=== PATIENT | female | born 1945 | race Caucasian/White ===

== ENCOUNTER 2020-01-06 08:50 | Outpatient (CLI) | payer MEDICARE, SELFPAY ==
--- NOTE | ~2020-01-06 | DEXA_ITS ---
Bone Density Report Name: Obdulia Villasenor Age: 74 Sex: Female Ethnicity: White Date of : 1945 Indication: postmenopausal; height loss; prior fracture; hysterectomy; Referring Provider: Yazmin Plascencia Study: Bone densitometry was performed. Exam Date: January 06, 2020 Accession number: [id number] Bone Density: Region BMD T-score Z-score Classification AP Spine (L1, L2) 1.101 1.1 3.3 Normal Femoral Neck (Left) 0.724 -1.1 0.9 Osteopenia Total Hip (Left) 1.006 0.5 2.2 Normal Total Hip Bilateral Avg 1.015 0.6 2.3 Normal Femoral Neck (Right) 0.717 -1.2 0.8 Osteopenia Total Hip (Right) 1.022 0.7 2.4 Normal World Health Organization criteria for BMD impression classify patients as: Normal (T-score at or above -1.0), Osteopenia (T-score between -1.0 and -2.5), or Osteoporosis (T-score at or below -2.5). 10-year Fracture Risk(1): Major Osteoporotic Fracture 15% Hip Fracture 2.1% Reported Risk Factors: [place] (), Neck BMD=0.717, BMI=31.5, previous fracture (1) FRAX(R) Version 3.08. Fracture probability calculated for an untreated patient. Fracture probability may be lower if the patient has received treatment. Previous Exams: Region Exam Age BMD T-score BMD Change BMD Change Date g/cm2 vs Baseline vs Previous AP Spine(L1, L2) 01/06/2020 74 1.101 1.1 0.034(3.2%)# 0.040(3.8%)# 11/10/2010 65 1.061 0.7 -0.006(-0.6%) -0.038(-3.4%)* 12/25/2007 62 1.098 1.1 0.032(3.0%)* 0.032(3.0%)* 12/25/2004 59 1.067 0.8 Total Hip(Left) 01/06/2020 74 1.006 0.5 -0.092(-8.4%)# -0.028(-2.7%)# 11/10/2010 65 1.034 0.8 -0.064(-5.8%)* -0.048(-4.4%)* 12/25/2007 62 1.082 1.1 -0.016(-1.5%) -0.016(-1.5%) 12/25/2004 59 1.098 1.3 Total Hip(Right) 01/06/2020 74 1.022 0.7 -0.030(-2.9%)# -0.058(-5.4%)# 11/10/2010 65 1.081 1.1 0.028(2.7%)* 0.034(3.2%)* 12/25/2007 62 1.047 0.9 -0.006(-0.6%) -0.006(-0.6%) 12/25/2004 59 1.053 0.9 *Denotes significance at 95% confidence level, LSC for AP Spine = 0.022 g/cm2, LSC for Total Hip = 0.027 g/cm2 Clinical Information Provided by Patient: Has had a low trauma fracture Has used the following medications: Vitamin D, Calcium Has the following medical conditions: Hysterectomy Patient maximum height was 63.5 Menopause Age: 46 No regular weight bearing exercise Drinks caffeinated beverages Onset of menses at age 15 Number of children 2
--- NOTE | ~2020-01-06 | MM_ITS ---
EXAMINATION: MM screening [facility] BI w tess HISTORY: Screening mammogram TECHNIQUE: Craniocaudal and mediolateral oblique 3-D tomosynthesis images were obtained and synthetic 2-D images were generated. CAD analysis was submitted and interpreted. COMPARISON: Serial mammogram examinations dating back to 02/10/2010 03/19/2010 MRI bilateral breast examination BREAST PARENCHYMAL COMPOSITION: There are scattered areas of fibroglandular density. FINDINGS: There are stable bilateral spiculated high density opacities, not significant changed since 02/10/2010. Numerous bilateral benign calcified microhematomas are again noted. There is no evidence of suspicious mass, calcification, or architectural distortion to suggest malignancy in either breas t. There has been no suspicious interval change. IMPRESSION: 1. No mammographic evidence of malignancy. 2. Recommend routine screening mammography in one year. BI-RADS Category 2: Benign finding(s). Reviewed, dictated and finalized at location A.
== END 2020-01-06 08:51 | disposition home or self-care (01) ==
LOC: ANHIMG 08:53
PROVIDERS: PCP Internal Medicine; Visit Provider Nurse Practitioner
DX: Z12.31 Encounter for screening mammogram for malignant neoplasm of breast (principal); Z78.0 Asymptomatic menopausal state; M85.852 Other specified disorders of bone density and structure, left thigh; M85.851 Other specified disorders of bone density and structure, right thigh
CPT/HCPCS: 77063; 77067; 77080

== ENCOUNTER → 2020-07-08 03:27 | Outpatient (CLI) | payer MEDICARE, SELFPAY ==
[2020-07-08 18:26] LABS: SARS-CoV-2 RNA PCR Negative
== END ==
PROVIDERS: PCP Internal Medicine; Visit Provider Internal Medicine Critical Care Medicine
DX: Z20.822 Contact with and (suspected) exposure to COVID-19 (principal)
CPT/HCPCS: C9803; U0003; U0005

== ENCOUNTER 2020-07-10 08:22 | Outpatient (CLI) | payer MEDICARE, SELFPAY ==
--- NOTE | 2020-07-27 09:52 | WPDSLEEPSTUD ---
Sleep Study Ordering Provider: Tino Shabazz DO Interpreting Physician: Philomena Chapa MD Sleep Study Type: Split Polysomnogram Height: 1.6 m Weight: 77.111 kg Body Mass Index: 30.1 Neck Circumference (inches): 15 [place]: 3 Reason for Sleep Study Known obstructive sleep apnea syndrome on CPAP, current CPAP machine is not working Sleep History Obdulia Villasenor is a 75 eayr old female with obstructive sleep apnea on CPAP. Her current device is not working. She constantly snores loudly enough that others complain about it. She never awakens at night with heartburn, belching or coughing. She occasionally awakens from sleep feeling short of breath. She does not have trouble sleep with a cold. She constantly wake up gap stopping for breath at night. She does not have breathing problems at night observed by others. She frequently sweats excessively night. She never notices her heart pounding or beating irregularly night. She rarely falls asleep during the day, never involuntarily never while driving. She never falls asleep during physical effort. She occasionally has loss of muscle tone was strong emotion. She does not have daytime difficulties due to excessive sleepiness. She occasionally feels paralyzed when waking or falling asleep. She rarely has vivid dreamlike scenes upon awakening or falling asleep. She never feels afraid to go to sleep. She does not have nightmares. She does not remember dreams. She constantly has racing thoughts. She never feels sad or depressed. She occasionally has anxiety. She does not have muscular tension or notices parts of her body jerking. She does not kick at night. She denies having crawling and aching feelings in her legs. She does not have any kind of leg pain at night. She occasionally has morning jaw pain. She denies grinding her teeth during sleep. She is not bothered by pain during the day or awakened by pain at night. She does not wake up feeling stiff in the morning with sore achy muscles or pain in the neck and spine. She has fatigue, headaches, insomnia. She never awakens feeling refreshed. Normal bedtime is 12 midnight taking sometimes up to an hour to fall asleep. She typically wakes 2-3 times at night to use the bathroom. She may stay awake 15 minutes. She wakes the morning at 8:00 a.m. She estimates getting 4-1/2 hours of sleep during the night. She does not sleep well. She does not take naps in the afternoon of evening. A short nap is not refreshing. She is sleepy during the day all the time. Habits: She is a former smoker. Caffeine 2-3 cups of coffee a day. No alcohol or recreational drugs. [facility] Past Medical History Medical History Body mass index (BMI) 35 or more Diarrhea, unspecified Fatty liver Gastric mass Hepatitis C virus infection LOS on CPAP Right leg pain Screening for colon cancer Sore throat Stress at home Family History Family History Sibling Hypertension Mother Family history of seizure disorder Family history of diabetes mellitus in first degree relative Father Family history of heart disease in male family member before age 55 Other Cerebrovascular accident Diabetes mellitus Family history of malignant neoplasm Social History Social History Smoking status: Former smoker Smoking end date: 03/20/75 Alcohol intake: current Medications Home Medications Medication Instructions Recorded Confirmed Type calcium carbonate-vitamin D3 600 600 cap PO .twice daily #30 cap 02/07/19 03/30/20 Rx mg calcium-200 unit capsule hepatitis B virus vacc.rec(PF) 10 10 mcg IM ONCE 02/07/19 03/30/20 History mcg/mL intramuscular syringe pen needle, diabetic 32 gauge x #100 each 02/07/19 03/30/20 History 1/ blood-glucose meter #1 each 07/08/19 03/30/20 Rx cholecalciferol (vitamin D3) 125 125 mcg PO D
[2020-07-27 10:16] VITALS: BMI 30.1
== END 2020-07-10 08:23 | disposition home or self-care (01) ==
LOC: ANHCSM 08:28
PROVIDERS: PCP Internal Medicine; Visit Provider Internal Medicine
DX: G47.33 Obstructive sleep apnea (adult) (pediatric) (principal); Z99.89 Dependence on other enabling machines and devices; G25.81 Restless legs syndrome; E66.9 Obesity, unspecified; Z68.30 Body mass index [BMI] 30.0-30.9, adult
CPT/HCPCS: 95811

== ENCOUNTER 2020-10-28 08:33 | Outpatient (CLI) | payer MEDICARE, SELFPAY ==
--- NOTE | ~2020-10-28 | XR_ITS ---
XR knee LT 3V DATE: 10/28/2020 09:05 INDICATION: Anterior left knee pain following a fall TECHNIQUE: [place], AP and lateral views COMPARISON: May 01, 2017 left knee FINDINGS: There is and approximately 1-1.5 x 9 mm linear lucency of the anterior mid patella on sunri se view; consider CT evaluation to exclude subtle patellar fracture. There is some prepatellar soft t issue swelling. Mild suprapatellar knee joint effusion is suggested. Otherwise no fracture or dislocation, periosteal reaction or bone destruction is evident. No radiopaq ue intra-articular loose body or chondrocalcinosis. Joint spaces are relatively preserved. IMPRESSION: Cannot exclude subtle nondisplaced patellar fracture; consider CT left knee evaluation Small suprapatellar knee joint effusion is suggested Reviewed, dictated and finalized at location A. IMPRESSION: Cannot exclude subtle nondisplaced patellar fracture; consider CT l eft knee evaluation Small suprapatellar knee joint effusion is suggested
== END 2020-10-28 08:34 | disposition home or self-care (01) ==
PROVIDERS: PCP Internal Medicine; Visit Provider Internal Medicine
DX: M25.562 Pain in left knee (principal)
CPT/HCPCS: 73562

== ENCOUNTER 2020-10-30 09:01 | Outpatient (CLI) | payer MEDICARE, SELFPAY ==
--- NOTE | ~2020-10-30 | CT_ITS ---
EXAMINATION: CT knee LT wo con DATE: 10/30/2020 09:25 INDICATION: Left knee pain. TECHNIQUE: Computed tomography (CT) of the left knee was performed without intravenous contrast. Auto mated exposure control and iterative reconstruction technique were employed. The dose-length product was 374.02 mGy-cm. COMPARISON: Left knee radiographs 10/28/2020 FINDINGS: Bone alignment is normal. There is a nondisplaced oblique fracture of the patella. There is mild tricompartmental osteoarthritis. There is a small knee joint effusion. IMPRESSION: 1. Nondisplaced oblique fracture of the patella. 2. Mild left knee osteoarthritis. 3. Small left knee joint effusion. Reviewed, dictated and finalized at location A.
== END 2020-10-30 09:02 | disposition home or self-care (01) ==
PROVIDERS: PCP Internal Medicine; Visit Provider Internal Medicine
DX: S82.002A Unspecified fracture of left patella, initial encounter for closed fracture (principal); M17.12 Unilateral primary osteoarthritis, left knee
CPT/HCPCS: 73700

== ENCOUNTER 2021-01-07 09:23 | Outpatient (CLI) | payer MEDICARE, SELFPAY ==
--- NOTE | ~2021-01-07 | MM_ITS ---
EXAMINATION: MM screening [place] BI w tess HISTORY: Screening mammogram TECHNIQUE: Craniocaudal and mediolateral oblique 3-D tomosynthesis images were obtained and synthetic 2-D images were generated. Bilateral rotated lateral CC views. CAD analysis was submitted and interp reted. COMPARISON: Serial mammogram examinations dating back to 10/16/2015 BREAST PARENCHYMAL COMPOSITION: There are scattered areas of fibroglandular density. FINDINGS: Stable high density spiculated opacities are again noted in both breasts, dictated back to 2016, likely benign. Numerous benign calcifications, primarily calcified microhematomas are again not ed. Otherwise there is no evidence of suspicious mass, calcification, or architectural distortion to suggest malignancy in either breast. There has been no suspicious interval change. IMPRESSION: 1. No mammographic evidence of malignancy. 2. Recommend routine screening mammography in one year. BI-RADS Category 2: Benign finding(s). Reviewed, dictated and finalized at location A.
== END 2021-01-07 09:24 | disposition home or self-care (01) ==
LOC: ANHIMG 09:24
PROVIDERS: PCP Internal Medicine; Visit Provider Nurse Practitioner
DX: Z12.31 Encounter for screening mammogram for malignant neoplasm of breast (principal)
CPT/HCPCS: 77063; 77067

== ENCOUNTER 2021-06-23 17:44 | Emergency (ER) | payer MEDICARE, SELFPAY ==
[2021-06-23] VITALS (12 sets, daily range): BP systolic 95–160; BP diastolic 49–76; PULSE 75–89; RESP 11–27; TEMP 36.2; O2SAT 96–100
--- NOTE | ~2021-06-23 | CT_ITS ---
EXAMINATION: CT brain wo con DATE: 06/23/2021 18:18 INDICATION: 2 episodes of aphasia. TECHNIQUE: Computed tomography (CT) of the head was performed without intravenous contrast. The mA wa s adjusted according to patient size. Iterative reconstruction technique was employed. The dose-lengt h product was 605.33 mGy-cm. COMPARISON: None FINDINGS: No acute intracranial hemorrhage or extra-axial fluid collection. No hydrocephalus, mass, or herniation. No acute ischemic infarct. Unremarkable dural venous sinus attenuation. No acute osseous abnormality. The aerated spaces are clear. Bilateral basal camera calcification. Bilateral lens replacement. Intracranial atherosclerotic calcif ications. IMPRESSION: No acute intracranial process. Reviewed, dictated and finalized at location K.
--- NOTE | ~2021-06-23 | XR_ITS ---
EXAMINATION: XR chest 1V portable Exam Date/Time: 06/23/2021 18:00 CDT CLINICAL HISTORY: neurologic s/s Comparison: 07/13/2008. RESULT: Lines, tubes, and devices: None. Lungs and pleura: Senescent changes. Cardiomediastinal silhouette: Stable cardiomediastinal silhouette. Other: No acute osseous or upper abdominal finding. IMPRESSION: No acute cardiopulmonary process. Reviewed, dictated and finalized at location K.
--- NOTE | 2021-06-23 17:55 | ECG_ITS ---
Measurements Intervals [place] Rate: 79 P: 58 [place]: 172 QRS: 30 QRSD: 92 T: 35 QT: 382 QTc: 439 Interpretive Statements SINUS RHYTHM NO PREVIOUS ECG AVAILABLE FOR COMPARISON Electronically Signed On 06-23-2021 21:21:23 CDT by Stephani Kitchen M.D.
[2021-06-23 18:03] LABS: Glucose Point of Care 126 mg/dl (65-105)
[2021-06-23 18:09] LABS: Basophils Percent Auto 0.3 % (0.2-1.2); Eosinophils Percent Auto 0.1 % (0-4.4); Hematocrit 39.2 % (37.0-47.0); Immature Granulocyte Absolute 0.04 K/mm3 (0.00-0.031); Immature Granulocyte Percent A 0.4 % (0-0.5); Lymphocytes Absolute Auto 2.89 K/mm3 (0.9-3.2); Lymphocytes Percent Auto 26.3 % (18.3-44.2); Mean Corpuscular HGB Conc 33.2 g/dl (32-36); Mean Corpuscular Hemoglobin 30.7 pg (26-34); Mean Corpuscular Volume 92.7 fl (80-100); Mean Platelet Volume 11.7 fl (7.4-10.4); Monocytes Absolute Auto 0.8 K/mm3 (0.1-0.6); Monocytes Percent Auto 7.2 % (2.6-8.5); Neutrophils Absolute Auto 7.2 K/mm3 (1.3-6.7); Neutrophils Percent Auto 65.7 % (45.5-73.1); Platelet Count Result 229 k/mm3 (150-375); Red Blood Count 4.23 M/mm3 (4.2-5.4); Red Cell Distribution Width 13.6 % (11.5-14.5)
[2021-06-23 18:19] LABS: INR 0.9; Prothrombin Time 11.8 Seconds (11.1-14.7)
[2021-06-23 18:20] LABS: Alanine Aminotransferase 25 U/L (4-35); Albumin Level 4.4 g/dL (3.5-5.1); Alkaline Phosphatase 88 U/L (38-126); Anion Gap 6 mmol/L (8-16); Aspartate Amino Transferase 36 U/L (14-36); Bilirubin,Total 0.5 mg/dL (0.2-1.3); Blood Urea Nitrogen 18 mg/dL (7-17); Carbon Dioxide 26 mmol/L (22-30); Chloride 101 mmol/L (98-107); Estimated CRCL calculation 51 ml/min; Estimated Glomerular Filt Rate > 60; Glucose 114 mg/dL (65-110); Potassium 3.8 mmol/L (3.4-5.0); Sodium 133 mmol/L (137-145)
[2021-06-23 18:32] LABS: Troponin I < 0.012 ng/mL (0.000-0.034)
--- NOTE | 2021-06-23 19:38 | PC.NURSE ---
PT AMBULATORY WITH STAND BY ASSIST TO USE RESTROOM AT THIS TIME. URINE SAMPLE PROVIDED.
--- NOTE | 2021-06-23 19:40 | ED.NEUROSD ---
HPI - Neuro Symptoms/Deficit General Chief Complaint: Neuro Symptoms/Deficit Stated Complaint: sent by PCP for EDOUARD/visual disturbances x 1 week Time Seen by Provider: 06/23/21 18:09 Source: patient Mode of arrival: ambulatory Limitations: no limitations History of Present Illness HPI Narrative: 76-year-old with a history of hypertension, hyperlipidemia, diabetes here with complaints of blurred vision followed by expressive aphasia and mild headache have been about a week ago and had a similar episode 2 days ago as well. Patient presently denies having headache or blurred vision or speech abnormality. She states that she called her doctor this morning and was advised to go to the ER. Patient states that she takes aspirin every other day. Onset (ago): week(s) (1) History of same: Yes Relieving factors: none Exacerbating factors: none On Anticoagulants: No Associated symptoms: denies other symptoms Related Data Home Medications Medication Instructions Recorded Confirmed pen needle, diabetic 32 gauge x #100 each 02/07/19 04/27/2103/25 cholecalciferol (vitamin D3) 125 125 mcg PO DAILY 09/12/19 04/27/21 mcg (5,000 unit) capsule semaglutide 0.5 mg SUB-Q WEEKLY ml 02/04/20 04/27/21 aspirin 81 mg tablet,delayed 81 mg PO DAILY 09/28/20 04/27/21 release trospium 20 mg tablet 20 mg PO BID 04/27/21 04/27/21 Allergies Allergy/AdvReac Type Severity Reaction Status Date / Time levofloxacin [From Levaquin] Allergy Severe Abdominal Verified 06/23/21 17:46 Pain PATRIZIA Inhibitors Allergy Mild Cough Verified 06/23/21 17:46 Xidqrsh-QAL-NtN Reductase Allergy Mild Cough Verified 06/23/21 17:46 Inhibitor [Ceboidf-Xii-Zvl Reductase Inhibitor] vaccine adjuvant system, Allergy Mild Reddish Verified 06/23/21 17:46 [id number] liposomal Rash on [From Shingrix (PF)] left arm varicella-zoster virus Allergy Mild Reddish Verified 06/23/21 17:46 glycoprotein E, recombinant Rash on [From Shingrix (PF)] left arm Review of Systems Review of Systems: All systems reviewed & are unremarkable except as noted in HPI and below Constitutional: Constitutional: Reports no additional constitutional complaints Eyes: Eyes: Reports no additional eye complaints ENT: Reports system reviewed and no additional complaints, except as documented Cardiovascular: Cardiovascular: Reports no additional cardiovascular complaints Respiratory: Respiratory: Reports no additional respiratory complaints Gastrointestinal: Gastrointestinal: Reports no additional gastrointestinal complaints Musculoskeletal: Musculoskeletal: Reports no additional musculoskeletal complaints Integumentary/Breasts: Skin/Breast: Reports system reviewed and no additional complaints, except as docu Neurologic: Reports as per HPI Psychiatric: Psychiatric: Reports no additional psychiatric complaints PMFSH Past Medical History Medical History Body mass index (BMI) 35 or more Diarrhea, unspecified Fatty liver Gastric mass Hepatitis C virus infection LOS on CPAP Right leg pain Screening for colon cancer Sore throat Stress at home Family History Family History Sibling Hypertension Mother Family history of seizure disorder Family history of diabetes mellitus in first degree relative Father Family history of heart disease in male family member before age 55 Other Cerebrovascular accident Diabetes mellitus Family history of malignant neoplasm Social History Social History Smoking status: Former smoker Smoking end date: 03/20/75 Alcohol intake: current Alcohol use details: rarely Substance use: never Substance use type: does not use Exam Narrative: GENERAL: Well-appearing, well-nourished, and in no acute distress. HEAD: Normocephalic, atraumatic. EYES: PERRLA and EOMI. ENT: Nares clear, no rhinorrhea or epistaxis. M
[2021-06-23] MEDS: ASPIRIN 325 MG TABLET PO (19:51)
[2021-06-23 20:14] LABS: Add Urine Microscopic? YES; Appearance Urine Clear (Clear); Bilirubin Urine Negative (Negative); Blood Urine Negative (Negative); Color Urine Yellow (Yellow); Glucose Urine UA Negative (Negative); Ketones Urine Negative (Negative); Leukocyte Esterase Ur Trace LEU/UL (Negative); Nitrate Urine Negative (Negative); Protein Urine Negative (Negative); RBC Urine 0-2 /hpf (0-2); Specific Grav Ur 1.014 (1.001-1.035); Squamous Epithelial Cell Urine Rare /hpf (Few); Urobilinogen Urine Negative mg/dL (<2.0); WBC Urine 0-3 /hpf
== END 2021-06-23 20:52 | disposition home or self-care (01) ==
PROVIDERS: Emergency Medicine; Emergency Provider Family Medicine; PCP Internal Medicine
DX: G45.9 Transient cerebral ischemic attack, unspecified (principal); G47.30 Sleep apnea, unspecified; I10 Essential (primary) hypertension; E78.5 Hyperlipidemia, unspecified; E11.9 Type 2 diabetes mellitus without complications; Z79.82 Long term (current) use of aspirin
CPT/HCPCS: 36415; 70450; 71045; 80053; 81001; 82948; 84484; 85025; 85610; 85730; 93005; 99284; A9270

== ENCOUNTER 2021-06-25 09:30 | Outpatient (CLI) | payer MEDICARE, SELFPAY ==
--- NOTE | 2021-06-25 09:45 | ECHO_ITS ---
Patient Info Name: Obdulia Villasenor Age: 76 years : 1945 Gender: Female Ht: 63 in Wt: 165 lbs BSA: 1.85 m2 HR: 80 bpm BP: 144 / 75 mmHg Technical Quality: Good Exam Date: 06/25/2021 10:10 AM Exam Location: [facility] Patient Status: Outpatient Admit Date: 06/25/2021 Staff Ordering Physician: Tino Shabazz DO Tire Builder: Radha Allen RDCS Attending Provider: Tino Shabazz DO Referring Physician: Harika DRAPER; Exam Type: CA echo doppler color flow Study Info Indications G45.9 - Transient cerebral ischemic attack, unspecified Complete two-dimensional, color flow and Doppler transthoracic echocardiogram is performed. Summary 1. Complete two-dimensional, color flow and Doppler transthoracic echocardiogram is performed. 2. Left ventricular chamber dimension is normal. 3. Left ventricular systolic function is normal, estimated at 60-65%. 4. The left ventricular diastolic function is grade I diastolic dysfunction. 5. E/e' 10 is mildly elevated. 6. Left atrial chamber dimension is moderately enlarged. 7. Right atrial chamber dimension is mildly enlarged. 8. There is mild aortic valve sclerosis. 9. There is mild to moderate aortic valve regurgitation. 10. There is mild mitral valve regurgitation. 11. There is trace tricuspid valve regurgitation. 12. No pulmonary hypertension, estimated pulmonary arterial systolic pressure is 25 mmHg. Left Ventricle E/e' 10 is mildly elevated. Left ventricular chamber dimension is normal. Left ventricular systolic function is normal, estimated at 60-65%. The left ventricular diastolic function is grade I diastolic dysfunction. Right Ventricle Right ventricular chamber dimension is normal. Right ventricular systolic function is normal. Left Atria Left atrial chamber dimension is moderately enlarged. Right Atria Right atrial chamber dimension is mildly enlarged. Aortic Valve The aortic valve is trileaflet. There is mild aortic valve sclerosis. There is no aortic valve stenosis. There is mild to moderate aortic valve regurgitation. Pulmonic Valve There is no pulmonic regurgitation. Mitral Valve There is no mitral valve stenosis. There is mild mitral valve regurgitation. Tricuspid Valve There is trace tricuspid valve regurgitation. No pulmonary hypertension, estimated pulmonary arterial systolic pressure is 25 mmHg. Pericardium/Pleural There is no pericardial effusion. Inferior Vena Cava Normal inferior vena cava with >50% collapse upon inspiration consistent with normal right atrial pressure, 5 mmHg. Aorta The aortic root size at the sinus of Valsalva is normal. Left Ventricular Outflow Tract Name Value Normal LVOT 2D LVOT Diameter 2.0 cm LVOT Doppler LVOT Peak Gradient 4 mmHg LVOT Mean Gradient 3 mmHg LVOT VTI 25 cm LVOT VTI/AV VTI Ratio 0.9 LVOT Stroke Volume 77 ml LVOT CO 14.2 l/min LVOT CI 7.7 l
== END 2021-06-25 09:31 | disposition home or self-care (01) ==
LOC: ANHCARD 09:32
PROVIDERS: PCP Internal Medicine; Visit Provider Internal Medicine
DX: G45.9 Transient cerebral ischemic attack, unspecified (principal); I35.1 Nonrheumatic aortic (valve) insufficiency; I34.0 Nonrheumatic mitral (valve) insufficiency
CPT/HCPCS: 93306

== ENCOUNTER 2021-06-29 13:31 | Outpatient (CLI) | payer MEDICARE, SELFPAY ==
--- NOTE | ~2021-06-29 | US_ITS ---
EXAMINATION: US carotid duplex BI DATE: 06/29/2021 14:06 INDICATION: Aphasia. Transient ischemic attack. TECHNIQUE: Grayscale, color Doppler, and pulsed Doppler images of the cervical carotid arteries were obtained. The degree of vessel stenosis is placed in one of the following categories: normal, <50%, 5 0-69%, >=70% but less than near-occlusion, near-occlusion, or total occlusion. Note that percent sten osis relative to normal distal artery lumen diameter is indirectly measured from velocity measurement s as described by Rowdy, et al. Radiology 2003; 229:340-346. COMPARISON: None. FINDINGS: RIGHT: The right common carotid artery (CCA) peak systolic velocity (PSV) is 91 cm/s. The right internal car otid artery (ICA) PSV is 109 cm/s. The right ICA end-diastolic velocity (EDV) is 24 cm/s. The right I CA/CCA PSV ratio is 1.2. Grayscale and color Doppler images yield an estimate of <50% diameter reduct ion from plaque in the ICA. There is antegrade flow in the right vertebral artery. LEFT: The left CCA PSV is 96 cm/s. The left ICA PSV is 91 cm/s. The left ICA EDV is 14 cm/s. The left ICA/C CA PSV ratio is 0.9. Grayscale and color Doppler images yield an estimate of <50% diameter reduction from plaque in the ICA. There is antegrade flow in the left vertebral artery. IMPRESSION: 1. <50% stenosis in the right internal carotid artery. 2. <50% stenosis in the left internal carotid artery. Reviewed, dictated and finalized at location A.
== END 2021-06-29 13:32 | disposition home or self-care (01) ==
LOC: ANHIMG 13:36
PROVIDERS: Visit Provider Internal Medicine
DX: I65.23 Occlusion and stenosis of bilateral carotid arteries (principal)
CPT/HCPCS: 93880

== ENCOUNTER 2021-06-30 12:33 | Outpatient (CLI) | payer MEDICARE, SELFPAY ==
--- NOTE | ~2021-06-30 | MR_ITS ---
EXAMINATION: MR brain/brain stem wo/w con DATE: 06/30/2021 13:44 INDICATION: Transient cerebral ischemic attack, unspecified. Speech deficit. TECHNIQUE: Magnetic resonance imaging (MRI) of the brain and brainstem was performed without and with 15 mL MultiHance intravenous contrast. Sequences included sagittal and axial T1-weighted FSE, axial diffusion-weighted FS EPI, axial T2*-weighted GRE, axial T2-weighted FLAIR Propeller, and axial T2-we ighted Propeller. Postcontrast sequences included axial and coronal T1-weighted FSE. Apparent diffusi on coefficient (ADC) maps were created. COMPARISON: Head CT 06/23/2021 FINDINGS: There are scattered areas of nonspecific increased T2-weighted signal intensity in the cere bral white matter, which is within normal limits for the patient's age. 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 There is no intracranial hemorrhage, acute infarction, or abnormal intracranial mass lesion. The ventricles are normal in size. There are likely changes of ocular lens replacement surgeries. There is a trace right mastoid effusion. There is mild mucosal thickening in left maxillary sinus. IMPRESSION: 1. Normal brain. Reviewed, dictated and finalized at location A. IMPRESSION: 1. Normal brain.
[2021-06-30 13:14] LABS: Estimated Glomerular Filt Rate > 60
== END 2021-06-30 12:34 | disposition home or self-care (01) ==
PROVIDERS: PCP Internal Medicine; Visit Provider Internal Medicine
DX: G45.9 Transient cerebral ischemic attack, unspecified (principal)
CPT/HCPCS: 70553; A9577

== ENCOUNTER 2021-10-08 08:20 | Outpatient (CLI) | payer MEDICARE, SELFPAY ==
--- NOTE | 2021-10-10 11:06 | P.NEURO_ITS ---
Neurology EEG Report General Information Date of Study: 10/08/21 TEST EEG DIAGNOSIS dysphagia CONDITION OF RECORDING awake drowsy and sleep EEG NUMBER [id number] CLINICAL HISTORY patient reports she has had 2 TIAs couple of months ago that had affected her speech EEG DESCRIPTION basic resting occipital frequency consists of low to medium voltage well- organized 8 to 10 hertz per 2nd alpha admixed with low-voltage 15 to 18 hertz per 2nd beta. Low-voltage beta activity seen diffusely admixed with waxing posterior alpha rhythm During drowsiness. Bilateral symmetrical sleep activity seen during sleep. Photic stimulation produced normal drive. Hyperventilation not done. Non paroxysmal. Nonfocal. Nonlateralizing. IMPRESSION Normal record
== END 2021-10-08 08:21 | disposition home or self-care (01) ==
LOC: ANHNEURO 08:23
PROVIDERS: PCP Internal Medicine; Visit Provider Psychiatry & Neurology Neurology
DX: R51.9 Headache, unspecified (principal); R13.10 Dysphagia, unspecified
CPT/HCPCS: 95816

== ENCOUNTER 2021-10-18 00:23 | Day surgery (SDC) | payer MEDICARE, SELFPAY ==
[2021-10-06 12:52] VITALS: BMI 29.2
--- NOTE | 2021-10-15 12:06 | SUR.PREOP ---
patient is taking Sutab for her colon prep.
[2021-10-18 08:30] LABS: Glucose Point of Care 98 mg/dl (65-105)
[2021-10-18 08:31] VITALS: BP 107/88; PULSE 75; RESP 16; TEMP 36.5; O2SAT 98
[2021-10-18] MEDS: LACTATED RINGERS 1,000 ML 150 ML IV CONT (08:37)
--- NOTE | 2021-10-18 09:11 | PM.IMHP ---
H&P: HPI History of Present Illness Date/Time: 10/18/21 09:11 Chief Complaint: Dysphagia and history of colon polyps. Narrative: This is a 76-year-old white female patient referred by primary care service because of difficulty swallowing and a history of colon polyps. Patient has a history of EGD by Dr Zachary Hood in 2017 that revealed a submucosal lesion within the stomach. Because of complaints of dysphagia patient was dilated empirically. No esophageal lesions were identified. Patient reports that she did swallow better for several years until recently food seems to catch her passed slowly through the esophagus. 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 Additionally patient has a distant history of tubular adenomatous colon polyp removed in 2007. Patient presents today for follow-up endoscopy. Review of Systems Review of Systems: Review of systems noncontributory. [facility] Past Medical History Medical History Body mass index (BMI) 35 or more Diarrhea, unspecified Fatty liver Gastric mass Hepatitis C virus infection LOS on CPAP Right leg pain Screening for colon cancer Sore throat Stress at home Family History Family History Sibling Hypertension Mother Family history of seizure disorder Family history of diabetes mellitus in first degree relative Father Family history of heart disease in male family member before age 55 Other Cerebrovascular accident Diabetes mellitus Family history of malignant neoplasm Social History Social History Smoking status: Former smoker (quit 40 years ago) Tobacco type: cigarettes Smoking end date: 03/20/75 Alcohol intake: current Alcohol use details: rarely Substance use: never Substance use type: does not use Living arrangements: with family Spiritual care concerns: No Meds Home Medications and Allergies Home Medications Medication Instructions Recorded Confirmed Type calcium carbonate 600 mg-vitamin 600 cap PO .twice daily #30 caps 02/07/19 10/18/21 Rx D3 5 mcg (200 unit) capsule (Calcium 600 + D(3)) pen needle, diabetic 32 gauge x #100 ea 02/07/19 08/10/21 History 1/6 (NovoFine Plus) blood-glucose meter #1 ea 07/08/19 08/10/21 Rx cholecalciferol (vitamin D3) 125 125 mcg PO DAILY 09/12/19 10/18/21 History mcg (5,000 unit) capsule semaglutide 0.25 mg or 0.5 mg (2 0.5 mg subcut WEEKLY 02/04/20 10/18/21 History mg/1.5 mL) subcutaneous pen injector (Nelbee) metformin 500 mg tablet 500 mg PO DAILY #180 tabs 06/16/20 10/18/21 Rx atorvastatin 40 mg tablet 40 mg PO DAILY #90 tabs 11/18/20 10/18/21 Rx trospium 20 mg tablet 60 mg PO DAILY 04/27/21 10/18/21 History losartan 100 1 tablet PO DAILY #90 tabs 05/14/21 10/18/21 Rx mg-hydrochlorothiazide 12.5 mg tablet omeprazole 40 mg capsule,delayed 40 mg PO DAILY #90 caps 05/14/21 10/18/21 Rx release blood-glucose meter (OneTouch #1 ea 08/10/21 Rx Verio Flex Meter) blood-glucose meter (OneTouch #1 ea 08/10/21 08/10/21 Rx Verio Meter) vit C 250 mg-vit E 90 mg-zinc 40 1 tablet PO DAILY 09/03/21 10/18/21 History mg-copper 1 [id number] capsule (PreserVision AREDS-2) Allergies Allergy/AdvReac Type Severity Reaction Status Date / Time levofloxacin [From Levaquin] Allergy Severe Abdominal Verified 10/18/21 08:29 Pain PATRIZIA Inhibitors Allergy Mild Cough Verified 10/18/21 08:29 varicella-zoster virus Allergy Mild Reddish Verified 10/18/21 08:29 glycoprotein E, recombinant Rash on [From Shingrix (PF)] left arm Vital Signs Vital Signs - 24 hr 10/18/21 08:31 Temperature 97.7 F Pulse Rate 75 Respiratory Rate 16 Blood Pressure 107/88 Pulse Oximetry 98 Oxygen Delivery Room Air Exam Narrative: Physical exam reveals p
--- NOTE | 2021-10-18 09:23 | WPDANESEPPF ---
Anes - Initial Pre Proc Eval Procedure: Operation Date: 10/18/21 09:45 Proposed Procedures p Esophagogastroduodenoscopy & Screening Colonoscopy - Zachary Brunson MD Date/Time: 10/18/21 09:23 Surgeon: Zachary Brunson MD Pre Op Diagnosis: hx of colon polyps, dysphagia Patient Data Age: 76 Gender: F Height: 1.6 m Weight: 73.5 kg Last Vital Signs Temp 97.7 F 10/18/21 08:31 Pulse 75 10/18/21 08:31 Resp 16 10/18/21 08:31 BP 107/88 10/18/21 08:31 Pulse Ox 98 10/18/21 08:31 O2 Del Method Room Air 10/18/21 08:31 Allergies Allergy/AdvReac Type Severity Reaction Status Date / Time levofloxacin [From Levaquin] Allergy Severe Abdominal Verified 10/18/21 08:29 Pain PATRIZIA Inhibitors Allergy Mild Cough Verified 10/18/21 08:29 varicella-zoster virus Allergy Mild Reddish Verified 10/18/21 08:29 glycoprotein E, recombinant Rash on [From Shingrix (PF)] left arm Home Medications Medication Instructions Recorded Confirmed Type calcium carbonate 600 mg-vitamin 600 cap PO .twice daily #30 caps 02/07/19 10/18/21 Rx D3 5 mcg (200 unit) capsule (Calcium 600 + D(3)) pen needle, diabetic 32 gauge x #100 ea 02/07/19 08/10/21 History 1/6 (NovoFine Plus) blood-glucose meter #1 ea 07/08/19 08/10/21 Rx cholecalciferol (vitamin D3) 125 125 mcg PO DAILY 09/12/19 10/18/21 History mcg (5,000 unit) capsule semaglutide 0.25 mg or 0.5 mg (2 0.5 mg subcut WEEKLY 02/04/20 10/18/21 History mg/1.5 mL) subcutaneous pen injector (Ozempic) metformin 500 mg tablet 500 mg PO DAILY #180 tabs 06/16/20 10/18/21 Rx atorvastatin 40 mg tablet 40 mg PO DAILY #90 tabs 11/18/20 10/18/21 Rx trospium 20 mg tablet 60 mg PO DAILY 04/27/21 10/18/21 History losartan 100 1 tablet PO DAILY #90 tabs 05/14/21 10/18/21 Rx mg-hydrochlorothiazide 12.5 mg tablet omeprazole 40 mg capsule,delayed 40 mg PO DAILY #90 caps 05/14/21 10/18/21 Rx release blood-glucose meter (OneTouch #1 ea 08/10/21 Rx Verio Flex Meter) blood-glucose meter (OneTouch #1 ea 08/10/21 08/10/21 Rx Verio Meter) vit C 250 mg-vit E 90 mg-zinc 40 1 tablet PO DAILY 09/03/21 10/18/21 History mg-copper 1 [id number] capsule (PreserVision AREDS-2) Laboratory Tests 10/18/21 08:27 POC Capillary Glucose 98 mg/dl mg/dl (65-105) Patient hx anesthesia problems: none Family hx anesthesia problems: none Results Review: All pre-operative results and documents have been reviewed as part of the pre-operative evaluation. PMFSH Past Medical History Medical History Body mass index (BMI) 35 or more Diarrhea, unspecified Fatty liver Gastric mass Hepatitis C virus infection LOS on CPAP Right leg pain Screening for colon cancer Sore throat Stress at home Family History Family History Sibling Hypertension Mother Family history of seizure disorder Family history of diabetes mellitus in first degree relative Father Family history of heart disease in male family member before age 55 Other Cerebrovascular accident Diabetes mellitus Family history of malignant neoplasm Social History Social History Smoking status: Former smoker (quit 40 years ago) Tobacco type: cigarettes Smoking end date: 03/20/75 Alcohol intake: current Alcohol use details: rarely Substance use: never Substance use type: does not use Living arrangements: with family Spiritual care concerns: No Anes - Eval Final PreProcedure Day of Procedure 10/18/21 09:23 Patient weight: normal Heart: regular rate and rhythm Lungs: clear to auscultation Airway: Mallampati scale class II Neurological: alert and oriented Last oral intake: >/= 8 hours ASA classification: III Emergent: no Anesthetic plan: proceed Anesthesia type and monitoring: general GIVS and standard monitoring Results Review: All
--- NOTE | 2021-10-18 10:05 | SUR.OPER ---
EGD ended at 1012. Colonoscopy began at 1009.
--- NOTE | 2021-10-18 10:10 | SUR.OPER ---
EGD ended at 1002. Colonoscopy began at 1008.
[2021-10-18 10:22] VITALS: BP 114/48; PULSE 76; RESP 26; O2SAT 98
[2021-10-18 10:32] VITALS: BP 125/53; PULSE 72; RESP 20; O2SAT 98
[2021-10-18 10:42] VITALS: BP 140/54; PULSE 67; RESP 15; O2SAT 98
== END 2021-10-18 10:49 | disposition home or self-care (01) ==
PROVIDERS: PCP Internal Medicine; Visit Provider Internal Medicine Gastroenterology
PROC: 0DJ08ZZ Inspection of Upper Intestinal Tract, Via Natural or Artificial Opening Endoscopic (ICD-10-PCS; CPT 43235; principal; 2021-10-18 09:45)
DX: Z12.11 Encounter for screening for malignant neoplasm of colon (principal); Z86.010 Personal history of colon polyps; Z83.71 Family history of colonic polyps; R13.10 Dysphagia, unspecified; K64.8 Other hemorrhoids; K57.30 Diverticulosis of large intestine without perforation or abscess without bleeding; R13.19 Other dysphagia; Z79.84 Long term (current) use of oral hypoglycemic drugs; Z79.4 Long term (current) use of insulin; K76.0 Fatty (change of) liver, not elsewhere classified; G47.33 Obstructive sleep apnea (adult) (pediatric); B19.20 Unspecified viral hepatitis C without hepatic coma; Z87.891 Personal history of nicotine dependence
CPT/HCPCS: 43450; 43235; G0105; 82948; J2704; J7120

== ENCOUNTER 2021-10-27 01:28 | Day surgery (SDC) | payer MEDICARE, SELFPAY ==
[2021-10-26 13:54] VITALS: BMI 28.9
[2021-10-27] VITALS (9 sets, daily range): BP systolic 114–155; BP diastolic 37–61; PULSE 73–87; RESP 13–18; TEMP 36.1; O2SAT 97–100; BMI 29.7
--- NOTE | 2021-10-27 08:46 | WPDMODSED ---
Moderate Sedation Note-Pt Data Patient Data Diagnosis: Recent TIA Present Complaint: No complaint Procedure to be performed/Plan: Transesophageal echocardiogram with agitated saline contrast Allergies Allergy/AdvReac Type Severity Reaction Status Date / Time levofloxacin [From Levaquin] Allergy Severe Abdominal Verified 10/27/21 07:12 Pain PATRIZIA Inhibitors Allergy Mild Cough Verified 10/27/21 07:12 varicella-zoster virus Allergy Mild Reddish Verified 10/27/21 07:12 glycoprotein E, recombinant Rash on [From Shingrix (PF)] left arm Home Medications Medication Instructions Recorded Confirmed Type calcium carbonate 600 mg-vitamin 600 cap PO .twice daily #30 caps 02/07/19 10/26/21 Rx D3 5 mcg (200 unit) capsule (Calcium 600 + D(3)) pen needle, diabetic 32 gauge x #100 ea 02/07/19 08/10/21 History 1/6 (NovoFine Plus) blood-glucose meter #1 ea 07/08/19 08/10/21 Rx cholecalciferol (vitamin D3) 125 125 mcg PO DAILY 09/12/19 10/26/21 History mcg (5,000 unit) capsule semaglutide 0.25 mg or 0.5 mg (2 0.5 mg subcut WEEKLY 02/04/20 10/26/21 History mg/1.5 mL) subcutaneous pen injector ([employer]) metformin 500 mg tablet 500 mg PO DAILY #180 tabs 06/16/20 10/26/21 Rx atorvastatin 40 mg tablet 40 mg PO DAILY #90 tabs 11/18/20 10/26/21 Rx trospium 20 mg tablet 60 mg PO DAILY 04/27/21 10/26/21 History losartan 100 1 tablet PO DAILY #90 tabs 05/14/21 10/26/21 Rx mg-hydrochlorothiazide 12.5 mg tablet omeprazole 40 mg capsule,delayed 40 mg PO DAILY #90 caps 05/14/21 10/26/21 Rx release blood-glucose meter (OneTouch #1 ea 08/10/21 Rx Verio Flex Meter) blood-glucose meter (OneTouch #1 ea 08/10/21 08/10/21 Rx Verio Meter) vit C 250 mg-vit E 90 mg-zinc 40 1 tablet PO DAILY 09/03/21 10/26/21 History mg-copper 1 [id number] capsule (PreserVision AREDS-2) Current Medications: Active Medications Sodium Chloride (Normal Saline Iv) 1,000 mls @ 30 mls/hr IV CONT .Q24H CHAIM Sedation/Anesthesia: No previous sedation/anesthesia problems (including family history). [facility] Past Medical History Medical History Body mass index (BMI) 35 or more Diarrhea, unspecified Fatty liver Gastric mass Hepatitis C virus infection LOS on CPAP Right leg pain Screening for colon cancer Sore throat Stress at home Family History Family History Sibling Hypertension Mother Family history of seizure disorder Family history of diabetes mellitus in first degree relative Father Family history of heart disease in male family member before age 55 Other Cerebrovascular accident Diabetes mellitus Family history of malignant neoplasm Social History Social History Smoking status: Former smoker Tobacco type: cigarettes Second hand tobacco smoke exposure: Yes Smoking end date: 03/20/75 Additional smoking assessment comments: quit 45 years ago Alcohol intake: current Alcohol use details: maybe once a month Substance use: former Substance use type: does not use Living arrangements: with family Spiritual care concerns: No Mod Sed Physical Exam Physical Exam Pre Procedural Exam: Normal: Appearance, Neck, Throat, Airway, Lungs, Heart Size, Heart Rate, Heart Rhythm, Neuro Exam and Extremities Hours since solid foods: 12 Hours since liquid intake: 12 Mallampati Classification: class II Internal Medicine - PN: Obj Da Vital Signs Vital Signs: Vital Signs - 24 hr 10/27/21 07:29 10/27/21 08:29 10/27/21 08:35 Temperature 36.1 C L Pulse Rate 76 87 76 Respiratory Rate 13 16 14 Blood Pressure 146/61 H 155/60 H 148/47 H Pulse Oximetry 99 100 98 Oxygen Delivery Room Air Nasal Cannula Nasal Cannula Oxygen Flow Rate 3 3 10/27/21 08:40 Temperature Pulse Rate 82 Respiratory Rate 18 Blood Pressure 131/38 L Pulse Oximetry 98 Oxygen Delivery Nasa
--- NOTE | 2021-10-27 08:47 | WPDCARDPROC ---
Cardiac Cath Procedure Note Date of procedure:: 10/27/21 Performing physician:: Abraham Redmond MD Indication:: TIA Brief clinical history:: This is a 76-year-old lady who has had 2 recent neurological episodes preceded by frontal headache and then speech deficit which resolve spontaneously. Workup for stroke was negative. Transthoracic echo was unremarkable. Maynor has been requested by her neurologist. No history of atrial fibrillation Procedure Procedure performed:: Transesophageal echocardiogram Sedation/Medication given:: Fentanyl 50 mg Versed 4 mg Case start time 8:30 a.m. Case end time 8:41 a.m. Estimated blood loss:: No blood loss Procedure note:: Patient was brought to the cardiac canvas shop laborer holding area where she was in the postabsorptive state. The patient was placed in the supine position with an or pharyngeal benzocaine was used for topical anesthesia. She was then sedated with fentanyl and Versed in aliquots with total dosage as detailed above. She has had excellent procedural sedation. The bite block was placed and the esophagus was intubated and MAYNOR was carried out uneventfully. With the four-chamber view and good visualization of the atrial septum the patient received an injection of agitated saline contrast which provided excellent opacification of the right heart chambers. Following this the probe was rotated the descending thoracic aorta and aortic arch were inspected and the probe was then removed and the case was terminated. Procedure was well tolerated and uncomplicated. Findings:: The left atrium appears to be mildly enlarged the left atrium was inspected in its entirety including the appendage. The appendage contracts very nicely there was no evidence of atrial thrombus and normal pulse Doppler flow from the atrial side appendage. The mitral valve leaflets are normal in appearance mitral regurgitation was not detected. The left ventricle is of normal dimension and contracts normally in all segments the ejection fraction visually estimated to be 65%. The aortic valve is trileaflet structure which is thin and pliable. The right-sided chambers are unremarkable in appearance and size. The interatrial septum appears to be intact and there was no discontinuity or evidence of ASD or PFO. Agitated saline contrast did not show any evidence of an intracardiac shunt. Conclusion:: 1. Transesophageal echocardiogram demonstrating no cardiac source for systemic embolization and no evidence of an intracardiac shunt Abraham Redmond MD [facility]
== END 2021-10-27 11:39 | disposition home or self-care (01) ==
PROVIDERS: PCP Internal Medicine; Visit Provider Specialist
PROC: (CPT 93312; principal; 2021-10-27 08:30)
DX: G45.9 Transient cerebral ischemic attack, unspecified (principal); G47.33 Obstructive sleep apnea (adult) (pediatric); K76.0 Fatty (change of) liver, not elsewhere classified; I10 Essential (primary) hypertension; E78.5 Hyperlipidemia, unspecified; E11.9 Type 2 diabetes mellitus without complications; B19.20 Unspecified viral hepatitis C without hepatic coma; Z87.891 Personal history of nicotine dependence; Z79.84 Long term (current) use of oral hypoglycemic drugs; Z79.899 Other long term (current) drug therapy
CPT/HCPCS: 93312; 93320; 93325; J2250; J3010; J7040

== ENCOUNTER 2022-01-11 15:10 | Outpatient (CLI) | payer MEDICARE, SELFPAY ==
--- NOTE | ~2022-01-11 | MM_ITS ---
EXAMINATION: MM screening [facility] BI w tess HISTORY: Screening mammogram TECHNIQUE: Craniocaudal and mediolateral oblique 3-D tomosynthesis images were obtained and synthetic 2-D images were generated. CAD analysis was submitted and interpreted. COMPARISON: Prior mammograms dating back to 02/10/2010 BREAST PARENCHYMAL COMPOSITION: There are scattered areas of fibroglandular density. FINDINGS: There are multiple spiculated masses in both breasts which have been stable since at least 2009 and are most consistent with prior reduction mammoplasty given the interval stability. Scattered benign-appearing calcifications are present. No suspicious mass, calcification, or architectural dis tortion are identified in either breast to suggest malignancy. There has been no suspicious interval change. IMPRESSION: 1. No mammographic evidence of malignancy. 2. Recommend routine screening mammography in one year. BI-RADS Category 2: Benign finding(s). Reviewed, dictated and finalized at location A.
== END 2022-01-11 15:11 | disposition home or self-care (01) ==
PROVIDERS: PCP Internal Medicine; Visit Provider Internal Medicine
DX: Z12.31 Encounter for screening mammogram for malignant neoplasm of breast (principal)
CPT/HCPCS: 77063; 77067

== ENCOUNTER 2022-04-01 12:31 | Outpatient (CLI) | payer MEDICARE, SELFPAY ==
--- NOTE | ~2022-04-01 | DEXA_ITS ---
Bone Density Report Name: SEMAJ PEREZ Age: 77 Sex: Female Ethnicity: White Date of : 1945 Indication: postmenopausal; screening for osteoporosis; height loss; prior fracture; hysterectomy; Referring Provider: PETERSON, MAK Nichols Study: Bone densitometry was performed. Exam Date: April 01, 2022 Accession number: [id number] Bone Density: Region BMD T-score Z-score Classification AP Spine(L1, L2) 1.122 1.3 3.6 Normal Femoral Neck (Left) 0.762 -0.8 1.3 Normal Total Hip (Left) 0.966 0.2 2.0 Normal Femoral Neck (Right) 0.681 -1.5 0.6 Osteopenia Total Hip (Right) 0.982 0.3 2.2 Normal Total Hip Mean 0.974 0.3 2.1 Normal World Health Organization criteria for BMD impression classify patients as: Normal (T-score at or above -1.0), Osteopenia (T-score between -1.0 and -2.5), or Osteoporosis (T-score at or below -2.5). 10-year Fracture Risk(1): Major Osteoporotic Fracture 17% Hip Fracture 3.3% Reported Risk Factors: [place] (), Neck BMD=0.681, BMI=30.6, previous fracture (1) FRAX(R) Version 3.08. Fracture probability calculated for an untreated patient. Fracture probability may be lower if the patient has received treatment. Clinical Information Provided by Patient: Has had a low trauma fracture Has used the following medications: HRT (i.e. estrogen/hormone therapy), Vitamin D, Calcium Has the following medical conditions: Hysterectomy Patient maximum height was 63.5 Menopause Age: 46 No regular weight bearing exercise Drinks caffeinated beverages Onset of menses at age 15 Number of children 2 Impression: The patient has low bone mass, based on the Right Femoral Neck T-score. The patient has an estimated ten-year risk of hip fracture of 3.3% and an estimated ten-year risk of major fracture of 17%, based on the WHO FRAX algorithm. The patient has risk factors, including: previous fracture. Discussion: BONE DENSITY IS LOW AT ONE OR MORE SKELETAL SITES. THE PATIENT'S BMD AND CLINICAL RISK FACTORS CONTRIBUTE TO THIS PATIENT'S INCREASED RISK OF FRACTURE. This patient's lowest T-score is low at one or more skeletal sites. It meets the World Health Organization's (WHO) criteria for ?low bone mass? (T-score between -1.0 and -2.5). The patient's 10-year risk of hip fracture as calculated by FRAX exceeds the threshold where pharmacological therapy is recommended by the National Osteoporosis Foundation (NOF). However, all treatment decisions require clinical judgment and consideration of individual patient factors, including patient preferences, comorbidities, previous drug use, risk factors not captured in the FRAX model (e.g., frailty, falls, vitamin D deficiency, increased bone turnover, interval significant decline in bone density) and possible under or overes
== END 2022-04-01 12:32 | disposition home or self-care (01) ==
LOC: ANHIMG 12:39
PROVIDERS: PCP Internal Medicine; Visit Provider Nurse Practitioner Obstetrics & Gynecology
DX: Z78.0 Asymptomatic menopausal state (principal); M85.851 Other specified disorders of bone density and structure, right thigh
CPT/HCPCS: 77080

== ENCOUNTER 2023-02-22 13:48 | Outpatient (CLI) | payer MEDICARE, SELFPAY ==
--- NOTE | ~2023-02-22 | MM_ITS ---
EXAMINATION: MM screening [facility] BI w tess HISTORY: Screening mammogram TECHNIQUE: Craniocaudal and mediolateral oblique 3-D tomosynthesis images were obtained and synthetic 2-D images were generated. CAD analysis was submitted and interpreted. COMPARISON: Prior mammograms dating back to 02/10/2010 BREAST PARENCHYMAL COMPOSITION: There are scattered areas of fibroglandular density. FINDINGS: Again noted are multiple spiculated masses in both breasts which are stable since at least 2009 and most consistent with prior reduction mammoplasty. No suspicious mass, calcification, or arch itectural distortion are identified in either breast to suggest malignancy. There has been no suspici ous interval change. IMPRESSION: 1. No mammographic evidence of malignancy. 2. Recommend routine screening mammography in one year. BI-RADS Category 2: Benign finding(s). Reviewed, dictated and finalized at location A. 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
== END 2023-02-22 13:49 | disposition home or self-care (01) ==
PROVIDERS: PCP Nurse Practitioner; Visit Provider Family Medicine
DX: Z12.31 Encounter for screening mammogram for malignant neoplasm of breast (principal)
CPT/HCPCS: 77063; 77067

== ENCOUNTER 2023-11-15 09:28 | Outpatient (CLI) | payer MEDICARE, SELFPAY ==
--- NOTE | ~2023-11-15 | US_ITS ---
EXAMINATION:US venous doppler LE RT INDICATION:Lower right leg pain TECHNIQUE: Multiple grayscale, color flow and Doppler images of the right lower extremity deep venous systems were obtained and reviewed. COMPARISON:No prior studies for comparison. FINDINGS: The common femoral, superficial femoral and popliteal veins demonstrate normal respiratory variation, augmentation and compressibility. Color flow is also seen within the posterior tibial, pe roneal, greater saphenous and profunda veins. IMPRESSION: 1: No lower extremity deep venous thrombosis. Reviewed, dictated and finalized at location B.
== END 2023-11-15 09:29 | disposition home or self-care (01) ==
LOC: ANHIMG 09:29
PROVIDERS: PCP Nurse Practitioner; Visit Provider Nurse Practitioner
DX: M79.661 Pain in right lower leg (principal)
CPT/HCPCS: 93971

== ENCOUNTER 2024-03-11 10:37 | Outpatient (CLI) | payer MEDICARE, SELFPAY ==
--- NOTE | ~2024-03-11 | MM_ITS ---
EXAMINATION TYPE: MM diagnostic [facility] BI w tess. Personal history of reduction mammoplasty. COMPARISON: Examination was compared with multiple prior studies performed most recently on 02/22/2023 and dating back to 01/06/2020 REASON FOR STUDY: BREAST LUMP TECHNIQUE: Bilateral mediolateral oblique and craniocaudal views were obtained digitally with 3-D ma mmogram (digital breast tomosynthesis) with CAD. Computer-aided detection was utilized in evaluation of this examination. BREAST PARENCHYMAL COMPOSITION:Dense: The breasts are heterogeneously dense, which may obscure small masses. FINDINGS: Stable parenchymal pattern, without discrete mass, architectural distortion, or suspicious micro-calc ifications. Bulky calcifications detected bilaterally, stable and benign in appearance. IMPRESSION: No mammographic or tomographic evidence to suggest the presence of malignancy. BI-RADS CATEGORY: 2: Benign findings RECOMMENDATION: Resumption of yearly mammography Reviewed, dictated and finalized at location A. [employer]IST FIRST CLASS
== END 2024-03-11 10:38 | disposition home or self-care (01) ==
LOC: ANHIMG 10:39
PROVIDERS: PCP Nurse Practitioner; Visit Provider Nurse Practitioner
DX: N63.0 Unspecified lump in unspecified breast (principal); R92.8 Other abnormal and inconclusive findings on diagnostic imaging of breast
CPT/HCPCS: 77062; 77066; G0279

== ENCOUNTER 2024-05-10 13:42 | Outpatient (CLI) | payer MEDICARE, SELFPAY ==
--- OUTSIDE RECORDS SUMMARY | 2024-05-10 13:49 | XMS_ITS | Encounter Summary ---
Author Organization [facility] Address [address] [place] [address] Care Team Providers Care Butcher Meat Name Role Phone Denny Georges MD Primary Care Provider [phone] Zachary Brunson MD Unavailable [phone] Tino Shabazz DO Primary Care Provider [phone] Encounter Details Date Type Department Care Team (Late st Contact Info) Description 06/07/2012 [facility] Outpatient Visit [facility] Medical [facility] [address] [place] [address] Laya Rios MD Social History Tobacco Use Types Packs/Day Years Used Date Smoking Tobacco: Never Assessed Sex and Gender Information Value Date Recorded Sex Assigned at Not on file Gender Identity Not on file Sexual Orientation Not on file documented as of this encounter Plan of Treatment Upcoming Encounters Date Type Department Care Team (Late Contact Info) Description 08/14/2024 11:00 AM CDT 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 [facility] - CHILD PROTECTION SPECIALIST [address], [address] [place] [address] Jeanie Ziegler MD [address] [place] [address] documented as of this encounter Visit Diagnoses Not on filedocumented in this encounter Care Teams Butcher Meat Relationship Specialty Start Date End Date Denny Georges MD [address] [place] [address] PCP - General Internal Medicine 05/28/12 05/20/20 Tino Shabazz DO [address] [place] [address] PCP - General 05/21/20 Zachary Brunson MD [address] [place] [address] Consulting Physician Gastroenterology 05/28/12 documented as of this encounter
--- OUTSIDE RECORDS SUMMARY | 2024-05-10 13:49 | XMS_ITS | Continuity of Care Document ---
Author Organization [facility] Address [address] [place] [address] Phone Care Team Providers Care French Edge Operator Name Role Phone Bernabe Flores MD Unavailable Unavailable Advance Directives Directive Yes / No Effective Date File Name No Information Encounters Encounter Description Practice Location Reason(s) For Visit Diagnoses Date Provider Providers Copied on Encounter [facility], [address], [place], [place], [id number], tel:[phone] [facility] No Information Sandra Kidd. [address], [address], [place], [address], [place]. [phone] [facility], [address], [place], [place], [id number], tel:[phone] [facility] Submucosal lesion of stomach Sandra Kidd. [address], [address], [place], [address], [place]. [phone] Family History Family Member Type Diagnosis Age At Onset No Information Payers Payer name Insurance type Covered green party ID Authoriza tion(s) No Information Social History Type Description Quantity Date Captured Comments Sex Female Smoking Status No Information Chief Complaint And Reason For Visit No Information Reason For Referral Reason For Referral No Information History Of Present Illness Encounter Date Complaint History Of Prese nt Illness No Information Functional Status Date Functional Assessmen t No Information Instructions Date Instruction Additional Infor mation No Information Assessments Type Assessment Date No Information Patient Care Teams Name Effective Dates (start - stop) Status Members No Information
--- OUTSIDE RECORDS SUMMARY | 2024-05-10 13:49 | XMS_ITS | Encounter Summary ---
Author Organization [facility] Address [address] [place] [address] Care Team Providers Care Cooling Pan Tender Name Role Phone Denny Georges MD Primary Care Provider [phone] Zachary Brunson MD Unavailable [phone] Tino Shabazz DO Primary Care Provider [phone] Encounter Details Date Type Department Care Team (Late st Contact Info) Description 05/17/2012 [facility] Outpatient Visit [facility] Medical [facility] [address] [place] [address] Laya Rios MD Social History [...] Description 08/14/2024 11:00 AM CDT 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 [facility] - 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
--- OUTSIDE RECORDS SUMMARY | 2024-05-10 13:49 | XMS_ITS | Encounter Summary ---
Author Organization [facility] Address [address] [place] [address] Care Team Providers Care Merchant Patroller Name Role Phone Denny Georges MD Primary Care Provider [phone] Zachary Brunson MD Unavailable [phone] Tino Shabazz DO Primary Care Provider [phone] Encounter Details Date Type Department Care Team (Late st Contact Info) Description 06/28/2012 [facility] Outpatient Visit [facility] Medical [facility] [address] [place] [address] Laya Rios MD Social History [...] Description 08/14/2024 11:00 AM CDT 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 [facility]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 [address] [place] [address] Jeanie Ziegler MD [address] [place] [address] documented as of this encounter Visit Diagnoses Not on filedocumented in this encounter Care Teams Merchant Patroller Relationship Specialty Start Date End Date Denny Georges MD [address] [place] [address] PCP - General Internal Medicine 05/28/12 05/20/20 Tino Shabazz DO [address] [place] [address] PCP - General 05/21/20 Zachary Brunson MD [address] [place] [address] Consulting Physician Gastroenterology 05/28/12 documented as of this encounter
--- OUTSIDE RECORDS SUMMARY | 2024-05-10 13:49 | XMS_ITS | Encounter Summary ---
Author Organization [facility] Address [address] [place] [address] Care Team Providers Care Auto Damage Adjuster Name Role Phone Denny Georges MD Primary Care Provider [phone] Zachary Brunson MD Unavailable [phone] Tino Shabazz DO Primary Care Provider [phone] Encounter Details Date Type Department Care Team (Late st Contact Info) Description 07/05/2012 [facility] Outpatient Visit 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
--- OUTSIDE RECORDS SUMMARY | 2024-05-10 13:49 | XMS_ITS | Data Portability ---
Author Organization [facility] [place] Address [address] [place] [address] [place] [address] Care Team Providers Care Ambulatory Care Nurse Name Role Phone FILI COELHO Primary Care Provider Assessment Encounter Date Assessment Date Assessment LastModified by Organization Details LastModified Time 01/21/2020 01/21/2020 Annual gynecological exam performed. Patient will come back in a year unless there are new symptoms. [email or web address] Not available 01/21/2020 10:04:15 02/18/2021 02/18/2021 Annual gynecological exam performed. Patient will come back in a year unless there are new symptoms. [email or web address] Not available 02/18/2021 11:26:13 02/25/2022 02/25/2022 Annual gynecological exam performed. Patient will come back in a year unless there are new symptoms. [email or web address] Not available 02/25/2022 10:45:18 02/27/2024 02/27/2024 Annual gynecological exam performed. Patient will come back in a year unless there are new symptoms. Not available 02/27/2024 10:38:41 Plan of Treatment Reminders Order Date Submit Date Provider Last Modified By Organization Details Last Modified Time Details Appointments None recorded. Lab urinalysis, dipstick 2023 024 [place], [place], [address], 11:20:44 urinalysis, dipstick 2020 021 [place], [address], [place], [address], 1 10:54:20 culture, urine 2020 021 [facility] (Lab), [address], [place], [address], 1 01:14:16 urinalysis, complete 2020 021 [facility] (Lab), [address], [place], [address], 1 01:14:16 Referral None recorded. Procedures None recorded. Surgeries None recorded. Imaging MAMMO, diagnostic, digital, bilateral - bilateral breast lumps in outer quadrants around 10-12 oclock 2023 024 [facility], [address], [place], [address], 4 04:01:47 US, breast, bilateral 2023 024 [facility], [address] [address], [place], [address], 4 04:01:47 DEXA, axial skeleton + vertebral fracture assessment 2021 022 [facility] (Mammography) , [address], [place], [address], 3 09:20:58 Medication Orders Macrobid 100 mg capsule 2023 024 [id number], [address] [place], [address], 4 11:03:21 Macrobid 100 mg capsule 2020 021 [email or web address] [id number], [address] [place], [address], 4 10:42:56 Macrobid 100 mg capsule 2020 021 [id number], [address] [place], [address], 4 10:42:56 Patient TargetsNo targets recorded. Patient Instructions Encounter Date Encounter Id Patient Instructions Last Modified By Organization Details Last Modified Time 01/21/2020 [id number] Suggest Calcium with Vitamin D if not eating in diet. Patient advised to get annual flu shot. Recommend yearly physicals and preform monthly breast exams. Genetic testing is available for patients with family history of cancer. Engage in safe sexual practices, use condoms. Encouraged to have daily exercise. Avoid tobacco and illicit drugs, moderation of alcohol. If BMI greater than 25 dietary consult advised. If you have any questions please call or email. Not available 01/21/2020 10:42:50 Reason for Referral None Reported. Results Created Date Observation Date Name Description Value Unit Range Abnormal Flag Note LastModifiedBy Organization Detail LastModifiedTime 01/21/2001/23/2020 cultu re, urine specimen source Urine - Void Not Available [facility]) [address], [place], [address], 01/23/2020 05:08:59 01/21/2001/23/2020 cultu re, urine culture, urine See Below 10,00 0-15, 000 Mixed Gram Posit migue Organ isms Three or more organ isms prese nt likel y repre senti ng conta minat ion durin g colle ction by patie nt's uroge nital , skin, and/o r fecal ivon . Organ ism ident ifica tion and sensi tivit y asses sment are not recom any d. Speci men recol lecti on is recom any d. Not Available [facility] ([facility]) [address], [place], [address], 01/23/2020 05:08:59 01/21/2001/21/2020 urina lysis , dipst ick Leukocytes +2 Not Available [facility] [address], [place], [address], 01/21/2020 11:11:01 01/21/20 20 01/21/2020 urina lysis , dipst ick Nitrite normal Not Available [place] [address], [place], [address], 01/21/2020 11:11:01 01/21/20 20 01/21/2020 urina lysis , dipst ick Urobilinogen normal Not Available [facility] amiee [address], [place], [address], 01/21/2020 11:11:01 01/21/20 20 01/21/2020 urina lysis , dipst ick Protein trace Not Available [place] [address], [place], [address], 01/21/2020 11:11:01 01/21/20 20 01/21/2020 urina lysis , dipst ick pH normal Not Available [place] [address], [place], [address], 01/21/2020 11:11:01 01/21/20 20 01/21/2020 urina lysis , dipst ick Specific [place] normal Not Available [facility] pito [address], [place], [address], 01/21/2020 11:11:01 01/21/20 20 01/21/2020 urina lysis , dipst ick Ketone normal Not Available [place] [address], [place], [address], 01/21/2020 11:11:01 01/21/20 20 01/21/2020 urina lysis , dipst ick Bilirubin normal Not Available [facility] [place] [address], [place], [address], 01/21/2020 11:11:01 01/21/20 20 01/21/2020 urina lysis , dipst ick Glucose normal Not Available [place] [address], [place], [address], 01/21/2020 11:11:01 01/21/20 20 01/21/2020 urina lysis , dipst ick Appearance normal Not Available [facility] mylene [address], [place], [address], 01/21/2020 11:11:01 01/21/20 20 01/21/2020 urina lysis , dipst ick Color normal Not Available [place] [address], [place], [address], 01/21/2020 11:11:01 01/28/20 21 01/27/2021 URINA LYSIS , WITH MICRO SCOPI C color, urine Yellow colorl ess, light yellow , yellow , dark yellow , straw Not Available [facility] (Lab) [address], [place], [address], 01/30/2021 01:14:16 01/28/20 21 01/27/2021 URINA LYSIS , WITH MICRO SCOPI C clarity, urine Slight ly Cloudy abnormal Not Available [facility] (Lab) [address], [place], [address], 01/30/2021 01:14:16 01/28/20 21 01/27/2021 URINA LYSIS , WITH MICRO SCOPI C glucose, urine Negati ve mg/dL negati ve Not Available [facility] (Lab) [address], [place], [address], 01/30/2021 01:14:16 01/28/20 21 01/27/2021 URINA LYSIS , WITH MICRO SCOPI C bilirubin, urine Negati ve mg/dL negati ve Not Available [facility] (Lab) [address], [place], [address], 01/30/2021 01:14:16 01/28/20 21 01/27/2021 URINA LYSIS , WITH MICRO SCOPI C ketones, urine Negati ve mg/dL negati ve Not Available [facility] (Lab) [address], [place], [address], 01/30/2021 01:14:16 01/28/20 21 01/27/2021 URINA LYSIS , WITH MICRO SCOPI C pH, urine 6.0 . 5.0-9. 0 Not Available [facility] (Lab) [address], [place], [address], 01/30/2021 01:14:16 01/28/20 21 01/27/2021 URINA LYSIS , WITH MICRO SCOPI C specific gravity, urine 1.019 . 1.001- 1.035 Not Available [facility] (Lab) [address], [place], [address], 01/30/2021 01:14:16 01/28/20 21 01/27/2021 URINA LYSIS , WITH MICRO SCOPI C blood, urine Negati ve negati ve Not Available [facility] (Lab) [address], [place], [address], 01/30/2021 01:14:16 01/28/20 21 01/27/2021 URINA LYSIS , WITH MICRO SCOPI C protein, urine Negati ve mg/dL negati ve Not Available [facility] (Lab) [address], [place], [address], 01/30/2021 01:14:16 01/28/20 21 01/27/2021 URINA LYSIS , WITH MICRO SCOPI C urobilinogen , urine <2.0 mg/dL <2.0 Not Available [facility] (Lab) [address], [place], [address], 01/30/2021 01:14:16 01/28/20 21 01/27/2021 URINA LYSIS , WITH MICRO SCOPI C nitrite, urine Negati ve negati ve Not Available [facility] (Lab) [address], [place], [address], 01/30/2021 01:14:16 01/28/20 21 01/27/2021 URINA LYSIS , WITH MICRO SCOPI C leukocyte esterase, urine Small negati ve abnormal Not Available [facility] (Lab) [address], [place], [address], 01/30/2021 01:14:16 01/28/20 21 01/27/2021 URINA LYSIS , WITH MICRO SCOPI C WBC, urine 6-9 /hpf none, 0-5 abnormal Not Available [facility] (Lab) [address], [place], [address], 01/30/2021 01:14:16 01/28/20 21 01/27/2021 URINA LYSIS , WITH MICRO SCOPI C RBC, urine 0-2 /hpf none, 0-2 Not Available [facility] (Lab) [address], [place], [address], 01/30/2021 01:14:16 01/28/20 21 01/27/2021 URINA LYSIS , WITH MICRO SCOPI C bacteria, urine Trace /hpf none abnormal Not Available [facility] (Lab) [address], [place], [address], 01/30/2021 01:14:16 01/28/20 21 01/27/2021 URINA LYSIS , WITH MICRO SCOPI C squamous epithelial cells, urine Few /hpf none abnormal Not Available [facility] (Lab) [address], [place], [address], 01/30/2021 01:14:16 01/28/20 21 01/27/2021 URINA LYSIS , WITH MICRO SCOPI C non-squamous epi, urine Trace /hpf none abnormal Not Available [facility] (Lab) [address], [place], [address], 01/30/2021 01:14:16 11/10/20 21 01/27/2021 URINA LYSIS , WITH MICRO SCOPI C mucus, urine Few /hpf none, trace, few Not Available [facility] (Lab) [address], [place], [address], 01/30/2021 01:14:16 01/28/20 21 01/27/2021 CULTU RE: URINE result report SEE RESULT S BELOW abnormal Test: Cultu re: Urine Speci men Sourc e: Urine Voide d Speci men Type: Urine Speci men Date: 01/27 10:25 AM Resul t Date: 01/30 12:10 AM Resul t Statu s: Final resul t Gerson mal: Yes Binu humphries Lab: [facility] [address] [facility] [address] Tel: CULTU RE ----- ----- ----- --- >100, 000 CFU/m l Esche alayna a coli (Abno rmal) SUSCE PTIBI LITY ----- ----- ----- --- Esche alayna a coli METHO D CHICHI ----- ----- ----- ----- ----- ---- ----- ----- ----- ----- ----- AMIKA ROXANNA <=16 ug/mL Susce ptibl e AMPIC ILLIN <=8 ug/mL Susce ptibl e AMPIC ILLIN /SULB ACTAM 2 ug/mL Susce ptibl e AZTRE ONAM <=4 ug/mL Susce ptibl e CEFAZ COLBY <=2 ug/mL Susce ptibl e CEFEP ROOSEVELT <=2 ug/mL Susce ptibl e CEFOX ITIN <=8 ug/mL Susce ptibl e CEFTA ZIDIM E <=1 ug/mL Susce ptibl e CEFTR IAXON E <=1 ug/mL Susce ptibl e CIPRO FLOXA ROXANNA <=1 ug/mL Susce ptibl e GENTA MICIN <=1 ug/mL Susce ptibl e LEVOF LOXAC IN <=0.2 5 ug/mL Susce ptibl e MEROP ENEM <=1 ug/mL Susce ptibl e NITRO FURAN TOIN <=32 ug/mL Susce ptibl e PIPER ACILL IN/TA ZOBAC TAVARES <=4 ug/mL Susce ptibl e TOBRA MYCIN <=1 ug/mL Susce ptibl e TRIME THOPR IM/YATES LFAME THOXA ZOLE <=2 ug/mL Susce ptibl e Not Available [facility] (Lab) [address], [place], [address], 01/30/2021 01:14:16 01/28/2001/27/2021 urina lysis , dipst ick Leukocytes + Not Available [facility] [address], [place], [address], 01/27/2021 10:54:07 01/28/20 21 01/27/2021 urina lysis , dipst ick Blood + Not Available [place] [address], [place], [address], 01/27/2021 10:54:07 02/19/20 21 02/18/2021 URINA LYSIS , WITH MICRO SCOPI C color, urine Straw colorl ess, light yellow , yellow , dark yellow , straw Not Available [facility] (Lab) [address], [place], [address], 02/19/2021 22:40:42 02/19/20 21 02/18/2021 URINA LYSIS , WITH MICRO SCOPI C clarity, urine Clear Not Available [facility] (Lab) [address], [place], [address], 02/19/2021 22:40:42 02/19/20 21 02/18/2021 URINA LYSIS , WITH MICRO SCOPI C glucose, urine Negati ve mg/dL negati ve Not Available [facility] (Lab) [address], [place], [address], 02/19/2021 22:40:42 02/19/20 21 02/18/2021 URINA LYSIS , WITH MICRO SCOPI C bilirubin, urine Negati ve mg/dL negati ve Not Available [facility] (Lab) [address], [place], [address], 02/19/2021 22:40:42 02/19/20 21 02/18/2021 URINA LYSIS , WITH MICRO SCOPI C ketones, urine Negati ve mg/dL negati ve Not Available [facility] (Lab) [address], [place], [address], 02/19/2021 22:40:42 02/19/20 21 02/18/2021 URINA LYSIS , WITH MICRO SCOPI C pH, urine 7.0 . 5.0-9. 0 Not Available [facility] (Lab) [address], [place], [address], 02/19/2021 22:40:42 02/19/20 21 02/18/2021 URINA LYSIS , WITH MICRO SCOPI C specific gravity, urine 1.008 . 1.001- 1.035 Not Available [facility] (Lab) [address], [place], [address], 02/19/2021 22:40:42 02/19/20 21 02/18/2021 URINA LYSIS , WITH MICRO SCOPI C blood, urine Negati ve negati ve Not Available [facility] (Lab) [address], [place], [address], 02/19/2021 22:40:42 02/19/20 21 02/18/2021 URINA LYSIS , WITH MICRO SCOPI C protein, urine Negati ve mg/dL negati ve Not Available [facility] (Lab) [address], [place], [address], 02/19/2021 22:40:42 02/19/20 21 02/18/2021 URINA LYSIS , WITH MICRO SCOPI C urobilinogen , urine <2.0 mg/dL <2.0 Not Available [facility] (Lab) [address], [place], [address], 02/19/2021 22:40:42 02/19/20 21 02/18/2021 URINA LYSIS , WITH MICRO SCOPI C nitrite, urine Negati ve negati ve Not Available [facility] (Lab) [address], [place], [address], 02/19/2021 22:40:42 02/19/20 21 02/18/2021 URINA LYSIS , WITH MICRO SCOPI C leukocyte esterase, urine Trace negati ve abnormal Not Available [facility] (Lab) [address], [place], [address], 02/19/2021 22:40:42 02/19/20 21 02/18/2021 URINA LYSIS , WITH MICRO SCOPI C WBC, urine 0-5 /hpf none, 0-5 Not Available [facility] (Lab) [address], [place], [address], 02/19/2021 22:40:42 02/19/20 21 02/18/2021 URINA LYSIS , WITH MICRO SCOPI C RBC, urine 0-2 /hpf none, 0-2 Not Available [facility] (Lab) [address], [place], [address], 02/19/2021 22:40:42 02/19/20 21 02/18/2021 URINA LYSIS , WITH MICRO SCOPI C bacteria, urine Trace /hpf none abnormal Not Available [facility] (Lab) [address] [place], [address], 02/19/2021 22:40:42 02/19/20 21 02/18/2021 URINA LYSIS , WITH MICRO SCOPI C squamous epithelial cells, urine Trace /hpf none abnormal Not Available [facility] (Lab) [address], [place], [address], 02/19/2021 22:40:42 02/19/20 21 02/18/2021 CULTU RE: URINE result report SEE RESULT S BELOW Test: Cultu re: Urine Speci men Sourc e: Urine Voide d Speci men Type: Urine Speci men Date: 2020 4:15 PM Resul t Date: 2020 9:36 PM Resul t Statu s: Final resul t Abnor mal: No Resul ting Lab: [facility] [address] [address] Tel: CULTU RE ----- ----- ----- --- No growt h in 1 day (dete ction level of 10,00 0 colon ies / ml.) Not Available [facility] (Lab) [address], [place], [address], 02/19/2021 22:40:44 02/27/20 24 02/27/2024 CULTU RE: URINE result report SEE RESULT S BELOW abnormal Test: Cultu re: Urine Speci men Sourc e: Urine - Clean Catch Speci men Type: Urine Speci men Date: 02/26 1110 Resul t Date: 02/28 194 Resul t Statu s: Final resul t Abnor mal: Yes Resul geneg Lab: [facility] [address] [address] Tel: CULTU RE ----- ----- ----- --- >100, 000 CFU/m l Esche alayna a coli (Abno rmal) TANIA PTIBI LITY ----- ----- ----- --- Esche alayna a coli METHO D CHICHI ----- ----- ----- ----- ----- ---- ----- ----- ----- ----- ----- AMPIC ILLIN >16 ug/mL Resis tant AMPIC ILLIN /SULB ACTAM >16 ug/mL Resis tant AZTRE ONAM <=4 ug/mL Susce ptibl e CEFAZ COLBY 16 ug/mL Susce ptibl e CEFEP ROOSE[place]ELT <=2 ug/mL Susce ptibl e CEFTA ZIDIM E <=1 ug/mL Susce ptibl e CEFTR IAXON E <=1 ug/mL Susce ptibl e CIPRO FLOXA ROXANNA <=0.2 5 ug/mL Susce ptibl e GENTA MICIN <=2 ug/mL Susce ptibl e LEVOF LOXAC IN <=0.5 ug/mL Susce ptibl e MEROP ENEM <=1 ug/mL Susce ptibl e NITRO FURAN TOIN <=32 ug/mL Susce ptibl e PIPER ACILL IN/TA ZOBAC TAVARES <=8 ug/mL Susce ptibl e TOBRA MYCIN <=2 ug/mL Susce ptibl e TRIME THOPR IM/YATES LFAME THOXA ZOLE <=2 ug/mL Susce ptibl e Not Available [facility] (Lab) [address], [place], [address], 02/29/2024 20:49:11 02/27/20 24 02/27/2024 urina lysis , dipst ick Leukocytes trace Not Available [facility] [address], [place], [address], 02/27/2024 11:18:03 02/27/20 24 02/27/2024 urina lysis , dipst ick Nitrite + Not Available [place] [address], [place], [address], 02/27/2024 11:18:03 02/27/20 24 02/27/2024 urina lysis , dipst ick Protein trace Not Available [place] [address], [place], [address], 02/27/2024 11:18:03 02/27/20 24 02/27/2024 urina lysis , dipst ick pH 6 Not Available [place] [address], [place], [address], 02/27/2024 11:18:03 02/27/20 24 02/27/2024 urina lysis , dipst ick Blood +++ Not Available [place] [address], [place], [address], 02/27/2024 11:18:03 02/27/20 24 02/27/2024 urina lysis , dipst ick Specific [place] 1.000 Not Available [facility] [address], [place], [address], 02/27/2024 11:18:03 02/27/20 24 02/27/2024 urina lysis , dipst ick Ketone + Not Available [place] [address], [place], [address], 02/27/2024 11:18:03 02/27/20 24 02/27/2024 urina lysis , dipst ick Appearance clear Not Available [facility] [address], [place], [address], 02/27/2024 11:18:03 02/27/2002/27/2024 urina lysis , dipst ick Color yellow Not Available [place] [address], [place], [address], 02/27/2024 11:18:03 02/19/20 DEXA, axial skele ton + verte bral fract ure asses sment No observ ation record ed. RADHA Not Available 2019 11:03:45 04/02/19 23 04/01/2022 DEXA, axial skele ton + verte bral fract ure asses sment No observ ation record ed. [facility] [address], [place], [address], 04/13/2022 12:16:40 04/02/19 23 04/01/2022 DEXA, axial skele ton + verte bral fract ure asses sment No observ ation record ed. [place] [address], [place], [address], 04/13/2022 12:10:21 03/11/20 24 03/11/2024 MAMMO , diagn ostic , digit al, bilat eral No observ ation record ed. [facility] [address], [place], [address], 03/11/2024 21:07:17 Result Notes None recorded. Problems Name Problem SNOMED Code Status Onset Date Resolution Date Notes Provider Name and Address Organization Details Recorded Time Blood leukocyt e number above referenc e range [id number] Completed 201801/26/2021 Elevated white blood cell count, unspecif ied;Ti rded Elsewher e: No Locat ion: [facility] S ource: EHR Sheep Herder winifred: N Practi ce ID: [id number] Edmund lable Time: 09:00:00 AM Regina thompson [facility] 09:56:20 Adult health examinat ion Completed 201001/26/2021 Routine general medical examinat ion at a health care facility ;Practic e ID: [id number] Regina thompson [facility] 09:56:12 Speciali zed medical examinat ion Completed 201001/26/2021 Routine gynecolo gical examinat ion;Prac thomas ID: [id number] Regina thompson [facility] 09:56:22 Screenin g for malignan t neoplasm of cervix Completed 201001/26/2021 Pap Smear;Pr actice ID: [id number] Regina thompson [facility] 09:56:05 Screenin g for malignan t neoplasm of rectum Completed 201001/26/2021 Screenin g for malignan t neoplasm s of the rectum;P ractice ID: [id number] Regina thompson [facility] 09:56:[address] Concept Completed 201701/26/2021 Encntr for general adult medical exam w/o abnormal findings ;Practic e ID: [id number] Regina thompson [facility] 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 09:56:19 Micturit ion finding Completed 201701/26/2021 Urinary incontin ence;Rec orded Elsewher e: No Locat ion: [facility] S ource: EHR Sheep Herder winifred: N Practi ce ID: [id number] Edmund lable Time: 09:00:00 AM Regina thompson [facility] 09:56:14 Problem Notes None recorded. Procedures Surgical History Date Name Laterality Status Provider Name and Address Organization Details Recorded Time 02/18/20 23 Date of Last Mammogram completed Olamide Nina [facility] 02/27/2024 10:45:43 04/01/19 23 Most Recent Bone Density completed Olamide Nina [facility] 02/27/2024 10:44:33 01/08/20 21 completed Regina Pleitez [facility] 01/28/2021 10:57:18 09/28/19 18 Date of Last Pap Smear completed Luciana Duarte [facility] 02/25/2022 10:45:56 05/19/19 08 completed Regina Pleitez [facility] 01/26/2021 10:47:17 05/19/19 08 Colonoscopy completed Meganmeche Galvan [facility] 03/15/2021 11:44:36 03/20/19 04 repair of urinary bladder completed Megan Galvan [facility] 01/30/2020 13:00:12 03/20/19 04 Breast reduction completed Meganmeche Galvan [facility] 01/30/2020 13:00:24 01/15/19 89 Partial Hysterectomy completed Regina Pleitez [facility] 01/26/2021 11:25:15 03/20/18 81 lumpectomy of breast completed Meganmeche Galvan [facility] 03/15/2021 11:45:49 Colonoscopy completed Olamide Nina [facility] 02/27/2024 10:46:36 Imaging Results Imaging Date Name Status LastModified by Organiz ation Details LastModified Time 02/19/2020 DEXA, axial skeleton + vertebral fracture assessment completed [place] Information not available 02/26/2020 11:03:45 04/01/2022 DEXA, axial skeleton + vertebral fracture assessment completed [address], [address], 04/13/2022 12:16:40 04/01/2022 DEXA, axial skeleton + vertebral fracture assessment completed [address], [address], 04/13/2022 12:10:21 03/11/2024 MAMMO, diagnostic, digital, bilateral completed [address], [address], 03/11/2024 21:07:17 Procedure Notes None recorded. Medical Equipment None Reported. Allergies No known drug allergies Medications Name Sig Start Date Stop Date Status Note LastModified by Organization Details LastModified Time Singulair 10 mg tablet take 1 tablet (10MG) by oral route every day in the evening 10/10 /2012 completed Prescrib ed Elsewher e: Yes Loca tion: [facility] odify By: tinoventura Hsieh christian DateTime : 11/06/19 11 12:33:17 PM Not Available Not Available Not Available fluconazo le 100 mg tablet 100 MG ORALLY DAILY STOP ATORVAST ATIN WHILE TAKING THIS MEDICATI ON. 02/26 completed Not Available Not Available Not Available atorvasta tin 40 mg tablet active Not Available Not Available Not Available metformin 500 mg tablet active Not Available Not Available Not Available atorvasta tin 10 mg tablet take 1 tablet by oral route every day 01/26 completed Prescrib ed Elsewher e: Yes [facility] By: effie hoskins DateTime : 01/16/20 19 09:00:00 AM Not Available Not Available Not Available azithromy roxanna 250 mg tablet ZPK 01/26 completed Not Available Not Available Not Available Prashant Low Dose Aspirin 81 mg tablet,de layed release take 1 tablet by oral route every day active Not Available Not Available No t Available ciproflox acin 500 mg tablet take 1 tablet by oral route every 12 hours 01/26 completed Prescrib ed Elsewher e: No Locat ion: [facility] odify By: effie hoskins DateTime : 01/25/20 01:17:20 PM Not Available Not Available Not Available sulfameth oxazole 800 mg-trimet hoprim 160 mg tablet TK 1 T PO BID 01/26 completed Not Available Not Available Not Available omeprazol e 40 mg capsule,d elayed release active Not Available Not Available Not Available ketorolac 0.5 % eye drops PUT 1 DROP IN LEFT EYE 4 TIMES A DAY 02/26 completed Not Available Not Available Not Available Macrobid 100 mg capsule Take 1 capsule every 12 hours by oral route for 7 days. 2023 active Not Available Not Available Not Avai lable prednisol one acetate 1 % eye drops,jesus manuel pension INSTILL 1 DROP LEFT EYE 4 TIMES A DAY 02/26 completed Not Available Not Available Not Available cephalexi n 500 mg capsule TK 1 C PO Q 12 H 01/26 completed Not Available Not Available Not Available polymyxin B sulfate 10,000 unit-trim ethoprim 1 mg/mL eye drops INSTILL 1 DROP INTO RIGHT EYE 4 TIMES A DAY FOR 7 DAYS 02/26 completed Not Available Not Available Not Available losartan 25 mg tablet take 1 tablet by oral route every day 01/26 completed Prescrib ed Elsewher e: Yes [facility] By: rebecca pandya DateTime : 09/28/19 18 09:00:00 AM Not Available Not Available Not Available omeprazol e 20 mg capsule,d elayed release take 1 capsule by oral route every day before a meal 01/26 completed Prescrib ed Elsewher e: Yes [facility] By: rebecca pandya DateTime : 09/28/19 18 09:00:00 AM Not Available Not Available Not Available mupirocin 2 % topical ointment APPLY TOPICALL Y TWICE A DAY INTRANAS ALLY active Not Available Not Available No t Available nystatin 100,000 unit/gram topical powder APPLY TOPICALL Y TWICE A DAY active Not Available Not Available No t Available methylpre dnisolone 4 mg tablets in a dose pack TK PO PER PACKAGE DIRECTIO NS 01/26 completed Not Available Not Available Not Available fluticaso ne propionat e 50 mcg/actua tion nasal spray,jesus manuel pension 1 - 2 SPRAY INTRANAS ALLY TWICE A DAY ADMINIST ER INTO EACH NOSTRIL. AIM BACK/UP/ OUT active Not Available Not Available No t Available mometason e 0.1 % topical cream APPLY TOPICALL Y DAILY active Not Available Not Available No t Available Calcium-5 00 500 mg (as calcium carbonate 1,250 mg) tablet active Not Available Not Available Not Available Diovan 40 mg tablet take 2 tablet (80MG) by oral route every day 09/27 completed Prescrib ed Elsewher e: No [facility] By: rebecca pandya DateTime : 11/18/19 11 05:00:00 PM Not Available Not Available Not Available ciproflox acin ER 500 mg tablet,ex tended release 24hr mphase take 1 tablet by oral route every day 01/24 completed Prescrib ed Elsewher e: No Locat ion: [facility] odify By: effie hoskins DateTime : 01/24/20 19 09:15:40 AM Not Available Not Available Not Available moxifloxa roxanna 0.5 % eye drops INSTILL 1 DROP INTO LEFT EYE 3 TIMES A DAY 02/26 completed Not Available Not Available Not Available Premarin 0.625 mg/gram vaginal cream apply external ly 2-3x a week 01/26 completed Prescrib ed Elsewher e: No [facility] odify By: ricky hoskins DateTime : 01/16/20 19 09:00:00 AM Not Available Not Available Not Available Riomet 500 mg/5 mL oral solution take 10 millilit er by oral route 2 times every day with meals 01/26 completed Prescrib ed Elsewher e: Yes Loca tion: [facility] odify By: henri Hsieh unter DateTime : 11/18/19 11 05:00:00 PM Not Available Not Available Not Available trospium 20 mg tablet 01/26 completed Not Available Not Available Not Available Imodium A-D 1 mg/7.5 mL oral liquid 01/26 completed Prescrib ed Elsewher e: Yes Loca tion: [facility] odify By: rebecca pandya DateTime : 09/28/19 18 09:00:00 AM Not Available Not Available Not Available losartan 100 mg-hydroc hlorothia zide 12.5 mg tablet active Not Available Not Available No t Available zinc active Not Available Not Availa ble Not Available Fish Oil 01/26 completed Prescrib ed Elsewher e: Yes [facility]oca [facility] By: rebecca pandya DateTime : 09/28/19 18 09:00:00 AM Not Available Not Available Not Available Twinrix (PF) 720 DAISY unit-20 mcg/mL intramusc ular syringe ADM 1ML IM UTD 01/26 completed Not Available Not Available Not Available trospium ER 60 mg capsule,e xtended release 24 hr TAKE 1 CAPSULE BY MOUTH EVERY DAY active Not Available Not Available No t Available OneTouch Verio test strips FOR TYPE 2 DIABETES USE 1 TIMES DAILY TO TEST BLOOD SUGARS 02/26 completed Not Available Not Available Not Available Myrbetriq 02/26 completed Not Available Not Available Not Available Victoza 2-Bar 0.6 mg/0.1 mL (18 mg/3 mL) subcutane ous pen injector inject by subcutan eous route every day 01/15 completed Prescrib presley Duong e: Yes Loca tion: [facility] odify By: [email or web address] z Encoun ter DateTime : 09/28/19 18 09:00:00 AM Not Available Not Available Not Available OneTouch Verio Flex Meter USE DIRECTED 02/26 completed Not Available Not Available Not Available Yuvafem 10 mcg vaginal tablet active Not Available Not Available Not Available Shingrix (PF) 50 mcg/0.5 mL intramusc ular suspensio n, kit ADM 0.5ML IM UTD 01/26 completed Not Available Not Available Not Available Ozempic 1 mg/dose (2 mg/1.5 mL) subcutane ous pen injector inject by subcutan eous route every week on the same day of each week, in the abdomen, thighs, or upper arm rotating injectio n sites active Not Available Not Available No t Available BD Maria Del Carmen 2nd Gen Pen Needle 32 gauge x 5/32 02/26 completed Not Available Not Available Not Available OneTouch Delica Plus Lancet 33 gauge USE TO TEST ONCE DAILY 02/26 completed Not Available Not Available Not Available Fluad Quad [id number] (65yr up)(PF) 60 mcg (15 mcg x 4)/0.5mL IM syringe ADM 0.5ML IM UTD 01/26 completed Not Available Not Available Not Available Vitals Date Recorded Body height Body mass index (BMI) Body weight Systolic blood pressure Diastolic blood pressure Provider Name and Address Organization Details Last Updated DateTime 01/27/2021 157.48 cm 31.6 kg/m2 23350.48 g 137 mm[Hg] 88 mm[Hg] Regina Pleitez MD - [facility] 10:42:57 Date Recorded Body height Body mass index (BMI) Body weight Provider Name and Address Organization Details Last Updated DateTime 02/18/2021 157.48 cm 31.8 kg/m2 78945.07 g Megan Galvan [facility] 02/18/2021 11:26:32 Date Recorded Systolic blood pressure Diastolic blood pressure Provider Name and Address Organization Details Last Updated DateTime 02/18/2021 134 mm[Hg] 64 mm[Hg] Michelle Lancaster, [facility] [address], [place], [address], [facility] 02/18/2021 11:36:14 Date Recorded Body height Body mass index (BMI) Body weight Provider Name and Address Organization Details Last Updated DateTime 02/25/2022 157.48 cm 29.9 kg/m2 36097.99 g Luciana Duarte [facility] 02/25/2022 10:45:32 Date Recorded Systolic blood pressure Diastolic blood pressure Provider Name and Address Organization Details Last Updated DateTime 02/25/2022 132 mm[Hg] 66 mm[Hg] Michelle Lancaster, [facility] [address], [place], [address], [facility] 02/25/2022 10:47:15 Date Recorded Body height Body mass index (BMI) Body weight Systolic blood pressure Diastolic blood pressure Provider Name and Address Organization Details Last Updated DateTime 02/27/2024 157.48 cm 28 kg/m2 34745.63 g 148 mm[Hg] 76 mm[Hg] Olamide Nina [facility] 4 10:41:14 Date Recorded Body height Body mass index (BMI) Body weight Systolic blood pressure Diastolic blood pressure Provider Name and Address Organization Details Last Updated DateTime 01/21/2020 157.48 cm 32.6 kg/m2 01442.44 g 151 mm[Hg] 63 mm[Hg] Megan Galvan [facility] 0 10:05:00 Social History Question Answer Notes LastModified by Organizat ion Details LastModified Time Tobacco Smoking Status Former Smoker Megan Galvan [facility] 02/18/2021 11:26:47 Do You Have An Advance Directive? Yes Information not available 02/27/2024 What Is Your Level Of Alcohol Consumption? Occasional [email or web address] Information not available 01/30/2020 Are You Blind Or Do You Have Difficulty Seeing? No [email or web address] Information not available 01/27/2021 What Is Your Level Of Caffeine Consumption? Occasional Information not available 02/27/2024 How Much Tobacco Do You Chew? None [email or web address] Information not available 01/27/2021 In The 14 Days Before Symptom Onset, Have You Had Close Contact With A Laboratory-confir med COVID-19 While That Case Was Ill? No [email or web address] Information not available 01/27/2021 In The 14 Days Before Symptom Onset, Have You Had Close Contact With A Person Who Is Under Investigation For COVID-19 While That Person Was Ill? No [email or web address] Information not available 01/27/2021 Have You Been To An Area Known To Be High Risk For COVID-19? No [email or web address] Information not available 01/27/2021 Are You Deaf Or Do You Have Serious Difficulty Hearing? No [email or web address] Information not available 01/27/2021 What Type Of Diet Are You Following? [email or web address] Information not available 01/27/2021 Do You Or Have You Ever Used E-cigarettes Or Vape? Never Used Electronic Cigarettes [email or web address] Information not available 02/18/2021 What Is The Highest Grade Or Level Of School You Have Completed Or The Highest Degree You Have Received? [id number] [email or web address] Information not available 01/27/2021 What Is Your Occupation? Retired [email or web address] Information not available 01/27/2021 Are There Any Guns Present In Your Home? No [email or web address] Information not available 01/27/2021 What Was The Date Of Your Most Recent Tobacco Screening? 01/21/2020 [email or web address] Information not available 02/18/2021 Do You Use Your Seat Belt Or Car Seat Routinely? Yes [email or web address] Information not available 01/27/2021 Do You Have Smoke And Carbon Monoxide Detectors In Your Home? Yes Information not available 01/27/2021 Do You Or Have You Ever Used Smokeless Tobacco? Never Used Smokeless Tobacco [email or web address] Information not available 02/18/2021 How Much Tobacco Do You Smoke? No Information not available 01/30/2020 Do You Feel Stressed (tense, Restless, Nervous, Or Anxious, Or Unable To Sleep At Night)? [id number] [email or web address] Information not available 01/27/2021 Do You Use Any Illicit Or Recreational Drugs? No [email or web address] Information not available 01/27/2021 Do You Use Sunscreen Routinely? Yes [email or web address] Information not available 01/27/2021 Have You Used IV Drugs? No [email or web address] Information not available 02/18/2021 Sex: Unknown Functional Status Question Answer Note LastModified by Organizat ion Details LastModified Time Do you have difficulty walking or climbing stairs? No Information not available 02/25/2022 Are you able to walk? YESWOREST [email or web address] Information not available 01/27/2021 Are you able to care for yourself? Yes Information not available 02/25/2022 Do you have difficulty dressing or bathing? No Information not available 02/25/2022 What is your exercise level? Occasional [email or web address] Information not available 01/30/2020 Mental Status None recorded. Family History Relationship Description Onset Age of this Age Resolved Age Notes LastModified by Organization Details LastModified Time Father Hypertensive disorder [email or web address] Not available 01/29 12:57:59 Father Diabetes mellitus [email or web address] Not available 01/29 12:58:22 Brother Hypertensive disorder [email or web address] Not available 01/29 12:57:59 Brother Diabetes mellitus [email or web address] Not available 01/29 12:58:22 Brother Malignant tumor of pharynx Not available 2023 10:12:50 Sister Diabetes mellitus [email or web address] Not available 01/29 12:58:22 Sister Genetic disease Not available 2023 10:12:50 Mother Seizure disorder [email or web address] Not available 2023 10:12:50 Medical History Condition Response Allergies (Food, seasonal, environmental ) N Other Y Breast Cancer N Drug/Latex Allergies/Reactions N Blood Transfusion N Dermatologic Disorders N Lung Disease N Defects or Inherited Disease N Breast Problem Y Gestational Diabetes N Hematologic disorders N Anesthesia Complications N History of STI N Deep Vein Thrombosis N Polycystic ovary syndrome N Anxiety Disorder N Autoimmune disease N Arthritis N Infertility N Polyps N Acid Reflux (GERD) Y History of abnormal pap N Cancer N Stroke N Varicosities N Neurologic/Epilepsy N Endometriosis N High Cholesterol Y Headaches N Fibromyalgia N Kidney Disease N Heart Problems N Kidney or Bladder Problems Y Thyroid Problems N GI Problems N Eating Disorder N Anemia N Art (IVF or FET) N Psychiatric Illness N Ovarian Cancer N Diabetes Y Pulmonary (TB, Asthma) N Hepatitis/Liver Disease N No Past Medical History N Eczema N Urinary Tract Infection N Abuse/Domestic Violence N Asthma N Trauma/Violence N Depression/ depression N Heart Disease N Pre-Eclampsia N Hypertension Y Osteoporosis Y Thrombophilias N Gynecological History Statement/Question Response Abnormal Pap N Date of Last Mammogram 02/17/2023 Date of LMP 01/15/1989 N On BCP's at Conception? N STIs/STDs N Was last menstrual period normal N HPV Vaccine N Current Control Method Hysterectom y 01/07/2021 13 Age at First Child 21 If Post Menopausal, Age at Menopause 51 Are cycles usually normal N Date of Last Colonoscopy Most Recent Bone Density 04/01/2022 Sexually Active? N Menses Monthly N Age of first menstrual cycle 14 Date of Last Pap Smear 09/27/2017 Sexual Problems? N LMP Definite 05/19/2007 N Obstetrics History GPAL:G 3 P 2 0 1 2 Type Value Full Term 2 Spontaneous 1 Living 2 Total 3 Past Encounters Encounter ID Performer Location Encounter Start Date Encounter Closed Date Diagnosis/Indication Diagnosis SNOMED-CT Code Diagnosis ICD10 Code Diagnosis Note [id number] Nikky Potts CNM [facility] [address] [address] 01/21/2020 09:35:37 01/21/2020 10:44:08 Gynecologic examination 89717274 Z01.419 [id number] Michaelaabram Randall [facility] [address] [address] 01/27/2021 10:25:00 01/28/2021 12:53:17 Pain in pelvis 24369363 R10.2 Urinary symptoms 4517951 08 R39.9 Increase water and decrease caffeine. Will start macrobid. Urine sent for culture. Discomfort is in bladder area. Based on the location will start with UTI treatment. If no UTI detected will need further evaluation for hematuria and pain. If UTI detected and symptoms resolve will follow up as needed. Pt agreed and verbalized understand ing. [id number] Michelle Lancaster [facility] [address],[facility] [place] [address] 02/18/2021 10:24:26 02/18/2021 11:52:06 Gynecologic examination 11552747 Z01.419 Take Calcium with Vitamin D 12-1500mg daily. Do monthly self breast exams. It is advised to get annual flu shot in the fall and she could obtain at [facility] or [facility] clinic. If you haven't received the Tdap vaccine in the last 10 years you should obtain one as well. Have mammogram yearly, bone density every 2-3 years and colonoscop y every 5-10 years depending on findings and history. Engage in daily exercise of low impact aerobic exercise 45-60 minutes 4-5 times weekly. Avoid tobacco and illicit drugs as well as using moderation with alcohol intake less than 1-2 8 oz beverages daily. This lifestyle behavior pattern will lead to less health conditions and longer life span. If BMI greater than 25 weight watchers or dietary consult advised. Questions have been answered. Patient appears to understand instructio ns, but if you have any further questions call or respond to this email USPSTF recommends against screening for cervical cancer in women older than 65yo who have had adequate prior screening & are not otherwise at high risk for cervical cancer. Not SADecline std screenMamm o done wnlDexa 2020Colon UTD PCPGenetic screen discussed Urinary tr act infectious disease 64954548 N39.0 Possible UTIBladder tenderness on examUrine sent [id number] Michelle Lancaster [facility] [address] [address] 02/25/2022 10:28:50 02/25/2022 11:20:32 Gynecologic examination [id number] Z01.419 Take Calcium with Vitamin D 12-1500mg daily. Do monthly self breast exams. It is advised to get annual flu shot in the fall and she could obtain at [facility] or [facility] clinic. If you haven't received the Tdap vaccine in the last 10 years you should obtain one as well. Have mammogram yearly, bone density every 2-3 years and colonoscop y every 5-10 years depending on findings and history. Engage in daily exercise of low impact aerobic exercise 45-60 minutes 4-5 times weekly. Avoid tobacco and illicit drugs as well as using moderation with alcohol intake less than 1-2 8 oz beverages daily. This lifestyle behavior pattern will lead to less health conditions and longer life span. If BMI greater than 25 weight watchers or dietary consult advised. Questions have been answered. Patient appears to understand instructio ns, but if you have any further questions call or respond to this email USPSTF recommends against screening for cervical cancer in women older than 65yo who have had adequate prior screening & are not otherwise at high risk for cervical cancer. STD Screen declined-n ot SAGenetic Screen discussedC olon Screen PCP 2Dexa Screen ordered due 2Routin e Labs PCPMammo PCPSee's Dr. Jeanie Roberts SLApoorva urogynChec k in with PCP for BP-underst anding verbalized . No sx's today Postmenopa usal osteopenia [id number] M85.80 osteopenia in 2020 [id number] VASILE Hidalgo [facility] [address] [address] 02/27/2024 10:12:41 02/27/2024 13:43:06 Gynecologic examination [id number] Z01.419 WWEPap - not indicatedS TI screen - declinedMa mmogram - order given, bilateral diagnostic with u/s d/t breast lumpsColon cancer screening - UTDDexa - UTDRoutine labs - UTD/PCPBP precaution s discussed, encouraged PCP f/uRTC in 1 yr or sooner if needed Do monthly self breast exams.It is advised to get annual flu shot in the fall and she could obtain at local pharmacy. If you haven't received the Tdap vaccine in the last 10 years you should obtain one as well.Have mammogram yearly, bone density every 2-3 years and stay up to date on colon cancer screening. Engage in regular exercise. Avoid tobacco and illicit drugs. This lifestyle behavior pattern will lead to less health conditions and longer life span. If BMI greater than 25 dietary consult advised.Qu estions have been answered. Screening for malignant neoplasm of breast 218432850 Z12.39 Breast lump 07155818 N63 .0 Urinary symptoms 0488534 08 R39.9 urine cx sentrx sent for macrobid - r/b/a reviewedpr ecautions discussed Time spent in visit is a total of 25 mins with at least 50% of visit consisting of counseling and review of plan of care. Pain in pelvis 46816758 R10.2 Health Concerns Section Related Observation LastModified by Organization Detai ls LastModified Time None Recorded Concern Status LastModified by Organization Details LastModified Time None Recorded Advance Directives Directive Y: Payers Encounter Date Sequence Insurance Name Policy Number Policy Butts Covered Member ID Butts Member ID Guarantor Name 01/21/2020 1 [employer] (MEDICARE REPLACEMENT/A DVANTAGE - PPO) [id number] Obdulia Villasenor [id number] [facility] 01/27/2021 2 [employer] (MEDICARE SUPPLEMENT) Odbulia Bernard Villasenor [id number] [facility] 01/27/2021 1 [place] Obdulia Villasenor [id number] [facility] 02/18/2021 2 [employer] (MEDICARE SUPPLEMENT) Obdulia Villasenor [id number] [facility] 02/18/2021 1 [place] Obdulia Villasenor [id number] [facility] 02/25/2022 2 [employer] (MEDICARE SUPPLEMENT) Obdulia Villaseonr [id number] [facility] 02/25/2022 1 [place] Obdulia Bernard Villasenor [id number] [facility] 02/27/2024 2 [employer] (MEDICARE SUPPLEMENT) Obdulia Villasenor [id number] [facility] 02/27/2024 1 [place] Obdulia Bernard Villasenor [id number] [facility] Notes Date Note Type Note Provider Name and Address Organization Details Recorded Time 01/21/2020 text/html Annual GYNReport ed bypatient.Menstrua l cycle:Normal menses Urinary symptoms:No hematuria; No incontinence Vulva:No genital lesion Vagina:Normal vaginal discharge Breast:No breast pain; No breast lump; No nipple discharge Psychological symptoms:No depression; No anxiety; No PMDDNotes:sbe, mammogram, dexa, up to date, sees pcp 2x year, hga1c 5.3, lost 20 lbs Nikky Potts CNM [address], [place], [address], [facility] 01/21/2020 10:43:06 01/27/2021 text/html Beer-Pelvic PainReported bypatient.Notes:Bu rning and pressure with urination and occasional sharp pain. Started a few weeks ago.Has a sling and Dr Mcneil said that sling was fine but pt does have overactive bladder. Medication has helped a little. Michaela thompson, [facility] 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 Post-MenopausalRep orted bypatient.Menopaus al Symptoms:no menopausal symptoms; normal vaginal lubrication Vaginal Bleeding:history of menopause having occurred; no history of post menopausal bleeding Urinary Symptoms:no hematuria; no incontinence; no nocturia; no urinary frequency Vulva:no genital lesion; no vulvar atrophy Vagina:normal vaginal discharge; no vaginal atrophy Breast:no breast lump; no nipple discharge; no breast pain Sexual Complaints:no sexual complaints Psychological Symptoms:no depression; no anxiety Preventive Measures:encourage regular mammograms starting age 40; encourage self breast examination; encourage regular exercise; encourage no tobacco use VASILE Espinosa- [address], [place], [address], [facility] 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 Post-MenopausalRep orted bypatient.Menopaus al Symptoms:no menopausal symptoms; normal vaginal lubrication Vaginal Bleeding:history of menopause having occurred; no history of post menopausal bleeding Urinary Symptoms:no hematuria; no incontinence; no nocturia; no urinary frequency Vulva:no genital lesion; no vulvar atrophy Vagina:normal vaginal discharge; no vaginal atrophy Breast:no breast lump; no nipple discharge; no breast pain Sexual Complaints:no sexual complaints Psychological Symptoms:no depression; no anxiety Preventive Measures:encourage regular mammograms starting age 40; encourage self breast examination; encourage regular exercise; encourage no tobacco use; mammogram performed within the past year; history of recent colonoscopy VASILE Espinosa- [address], [place], [address], [facility] 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 Post-MenopausalRep orted bypatient.Menopaus al Symptoms:no menopausal symptoms; normal vaginal lubrication Vaginal Bleeding:history of menopause having occurred; no history of post menopausal bleeding Urinary Symptoms:no hematuria; no incontinence; no nocturia; no urinary frequency Vulva:no genital lesion; no vulvar atrophy Vagina:normal vaginal discharge; no vaginal atrophy Breast:no breast lump; no nipple discharge; no breast pain Sexual Complaints:no sexual complaints Psychological Symptoms:no depression; no anxiety Preventive Measures:encourage regular mammograms starting age 40; encourage self breast examination; encourage regular exercise; encourage no tobacco useNotes:79yo wweh/o hyst 1988 (non-cancerous indications)no h/o abnormal pap smears per ptmammogram last olonoscopy UTDdexa UTD 2022 urinary frequency/pressure for the past weekneg dysuria, neg flank painssees urogyne for OAB, had botox procedure done last month [facility] [address], [place], [address], [facility] 02/27/2024 13:09:56 OBGyn Episode Ob Episode Information Episode Created Date Number of Fetuses Patient Bloodtype Patient rh Status Prepregnancy Weight lbs Domestic Partner Domestic Partner Phone Father Name Steam Pipe Fitter Status 01/30/20 20 1 CLOSED Fetus Data First Name Last Name Admitted to NICU Weight (g) Sex Living Outcome Pediatric Complications Fetus ID Race Codes Race Delivery Type 3883.65 4704 M Full Term 6086 Vaginal Delivery Beka Calculation Initial Beka Date Initial Exam Date Initial Exam Provider Initial Ultrasound Date Last Menstrual Period Date Ultra Sound Weeks Gestation 0 Eighteen To Twenty Week Beka Update Ultra Sound Date Fundal Height At Umbil Quickening Date Ultra Sound Latest Weeks Gestation Final Beka Confirmed By Final Beka Confirmed Date Final Beka Date Ultra Sound Latest Days Gestation 0 0 Menstrual History Last Menstrual Date Menses Monthly On Bcp Conception Prior Menses Frequency Hcg Plus Date Menarche Onset Age Delivery Information Delivery Date Delivery Type Labor Anesthesia Weeks Gestation Incision Type Labor Labor Length Hrs Delivered By Post Complications Tubal Sterilization Discharge Date Comments 6 40 Discharge Information Feeding Method Contraceptive Method Maternal HG B and HCT Levels Ob Episode Information Episode Created Date Number of Fetuses Patient Bloodtype Patient rh Status Prepregnancy Weight lbs Domestic Partner Domestic Partner Phone Father Name Steam Pipe Fitter Status 01/30/20 20 1 CLOSED Fetus Data First Name Last Name Admitted to NICU Weight (g) Sex Living Outcome Pediatric Complications Fetus ID Race Codes Race Delivery Type 3968.93 M Full Term 6087 Vaginal Delivery Beka Calculation Initial Beka Date Initial Exam Date Initial Exam Provider Initial Ultrasound Date Last Menstrual Period Date Ultra Sound Weeks Gestation 0 Eighteen To Twenty Week Beka Update Ultra Sound Date Fundal Height At Umbil Quickening Date Ultra Sound Latest Weeks Gestation Final Beka Confirmed By Final Beka Confirmed Date Final Beka Date Ultra Sound Latest Days Gestation 0 0 Menstrual History Last Menstrual Date Menses Monthly On Bcp Conception Prior Menses Frequency Hcg Plus Date Menarche Onset Age Delivery Information Delivery Date Delivery Type Labor Anesthesia Weeks Gestation Incision Type Labor Labor Length Hrs Delivered By Post Complications Tubal Sterilization Discharge Date Comments 8 40 Discharge Information Feeding Method Contraceptive Method Maternal HG B and HCT Levels Ob Episode Information Episode Created Date Number of Fetuses Patient Bloodtype Patient rh Status Prepregnancy Weight lbs Domestic Partner Domestic Partner Phone Father Name Steam Pipe Fitter Status 01/30/20 20 1 CLOSED Fetus Data First Name Last Name Admitted to NICU Weight (g) Sex Living Outcome Pediatric Complications Fetus ID Race Codes Race Delivery Type , Spontane ous 6085 Beka Calculation Initial Beka Date Initial Exam Date Initial Exam Provider Initial Ultrasound Date Last Menstrual Period Date Ultra Sound Weeks Gestation 0 Eighteen To Twenty Week Beka Update Ultra Sound Date Fundal Height At Umbil Quickening Date Ultra Sound Latest Weeks Gestation Final Beka Confirmed By Final Beka Confirmed Date Final Beka Date Ultra Sound Latest Days Gestation 0 0 Menstrual History Last Menstrual Date Menses Monthly On Bcp Conception Prior Menses Frequency Hcg Plus Date Menarche Onset Age Delivery Information Delivery Date Delivery Type Labor Anesthesia Weeks Gestation Incision Type Labor Labor Length Hrs Delivered By Post Complications Tubal Sterilization Discharge Date Comments 1974 miscarria ge Discharge Information Feeding Method Contraceptive Method Maternal HG B and HCT Levels
--- OUTSIDE RECORDS SUMMARY | 2024-05-10 13:49 | XMS_ITS | Clinical Summary ---
Author Organization [facility] [place] [address] Address [address] [place] [address] Care Team Providers Care Millinery Salesperson Name Role Phone Tino Shabazz DO Primary Care Provider [phone] Allergies No known active allergies Medications atorvastatin (LIPITOR) 40 mg tablet atorvastatin 40 mg tablet Active losartan-hydroC HLOROthiazide (HYZAAR) 100-12.5 mg per tablet losartan 100 mg-hydrochloroth iazide 12.5 mg tablet Active metFORMIN (GLUCOPHAGE) 500 mg tablet metformin 500 mg tablet Active semaglutide (Ozempic) 1 mg/dose (2 mg/1.5 mL) pen injector injection Ozempic 1 mg/dose (2 mg/1.5 mL) subcutaneous pen injector inject by subcutaneous route every week on the same day of each week, in the abdomen, thighs, or upper arm rotating injection sites Active omeprazole (PriLOSEC) 40 mg capsule omeprazole 40 mg capsule,delayed release 8 Active trospium XR (SANCTURA XR) 60 mg capsule,extende d release 24hr Take by mouth daily 2 Active cholecalciferol (VITAMIN D-3) 25 mcg (1,000 unit) tablet Take 1,000 Units by mouth daily Active calcium carbonate (OS-HARSHA) 1,250 mg (500 mg elemental) tablet Calcium 500 500 mg calcium (1,250 mg) tablet Active Active Problems Problem Noted Date Diagnosed Date TIA (transient ischemic attack) 09/30/2021 Surgical History Surgery Date Site/Laterality Comments BREAST SURGERY 2002 Medical History Medical History Date Comments Hypertension Hyperlipidemia Sleep apnea Family History Medical History Relation Name Comments Stroke Father Heart disease Other Relation Name Status Comments Father Mother Other Social History Tobacco Use Types Packs/Day Years Used Date Smoking Tobacco: Former Cigarettes 0.1 4.5 0 03/20/1979 - 09/25/1983 Smokeless Tobacco: Never Personal Safety Answer Date Recorded Getting School Help Needed Not on file 06/02 Comments Unknown Sex and Gender Information Value Date Recorded Sex Assigned at Not on file 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 Gender Identity Not on file Sexual Orientation Not on file Obstetrics History Last Filed Vital Signs Vital Sign Reading Time Taken Comments Blood Pressure 136/74 09/30/2021 2:48 PM CDT Pulse 76 09/30/2021 2:48 PM CDT Temperature 36.8 C (98.3 F) 06/26/2014 6:01 PM CDT Respiratory Rate - - Oxygen Saturation 96% 09/30/2021 2:48 PM CDT Inhaled Oxygen Concentration - - Weight 75.8 kg (167 lb) 09/30/2021 2:48 PM CDT Height 160 cm (5' 3 ) 09/30/2021 2:48 PM CDT Body Mass Index 29.58 09/30/2021 2:48 PM CDT Plan of Treatment Health Maintenance Due Date Last Done Comments Depression Screening 1945 Fall Risk Assessment 1945 Hepatitis C Screening 1945 Osteoporosis Screening-Bone Density Scan 1945 DTaP/Tdap/Td Vaccine (1 - Tdap) 1957 Well Visit 65+ 2011 Covid-19 Vaccine (2023-2 5 season) 2023 11/21/2020, 05/22/2020, 04/28/2020 Influenza Vaccine (#1) 2023 , 12/28/2019, 12/09/2018, Additional history exists Pneumococcal vaccine 65+ Completed 01/17/2018, 12/19 Zoster Vaccine Completed 03/04/2020, 01/03/2020 Hepatitis B Screening Completed 03/12/2020 , 09/13/2019, 06/02/2019, Additional history exists Insurance MEDICARE [employer]ETNA Care Teams Millinery Salesperson Relationship Specialty Start Date End Date Tino Shabazz DO PCP - General Internal Medicine 09/30/21
--- OUTSIDE RECORDS SUMMARY | 2024-05-10 13:49 | XMS_ITS | Referral Summary ---
Author Organization [facility] [place] [address] Address [address] [place] [address] Care Team Providers Care Financial Planner Name Role Phone Tino Shabazz DO Primary Care Provider [phone] Allergies No known active allergies Medications atorvastatin [...] Diagnosed Date TIA (transient ischemic attack) 09/30/2021 Social History Tobacco Use Types Packs/Day Years Used Date Smoking Tobacco: Former Cigarettes 0.1 4.5 0 03/20/1979 - 09/25/1983 Smokeless Tobacco: Never Personal Safety Answer Date Recorded Getting School Help Needed Not on file 06/02 Comments Unknown Sex and Gender Information Value Date Recorded Sex Assigned at Not on file 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
--- OUTSIDE RECORDS SUMMARY | 2024-05-10 13:50 | XMS_ITS | Clinical Summary ---
Author Organization [facility] Address [address] [address] Care Team Providers Care Skin Diving Teacher Name Role Phone Zachary Brunson MD Unavailable [phone] Tino Shabazz DO Primary Care Provider [phone] Source Comments [facility],non-owned Affiliates and Associated Physician Practices is amultiple site organization consisting of ambulatory clinics and hospital sitesin [place], [place], [place] and [place]. This disclosure is being madepursuant to the Care Everywhere program and may not contain all information available regarding this patient. Last updated 17.[facility] Allergies No known active allergies Medications * Be aware that medications may not be up to date on this document. Alwaysverify current medications with the patient. Medication Sig Dispensed Refills Start Date End Date Status atorvastatin (Lipitor) 40 MG tablet Take 1 Half Tablet by mouth once daily Active metFORMIN (GLUCOPHAGE) 500 MG tablet Take 1 (one) tablet by mouth once daily Active Loperamide (Imodium) 2 MG tablet Take 1 Half Tablet by mouth as needed Active semaglutide (OZEMPIC, 0.25 OR 0.5 MG/DOSE,) 2 MG/1.5ML pen Inject 0.5 (one-half) mg subcutaneously every 7 days Active Calcium Carb-Cholecalcifer ol (CALCIUM 1000 + D PO) Take 1 tablet by mouth once daily 600+D3 Active vitamin D3-cholecalciferol (CHOLECALCIFEROL) 25 MCG (1000 UNITS) tablet Take 1 (one) tablet by mouth once daily Active losartan-hydroCHLO ROthiazide (Hyzaar) 100-12.5 MG tablet losartan 100 mg-hydrochlorothiazi de 12.5 mg tablet Active omeprazole (PriLOSEC) 40 MG capsule omeprazole 40 mg capsule,delayed release Active Multiple Vitamins-Minerals (ICAPS AREDS 2 PO) Take 1 tablet by mouth once daily Active amoxicillin-clavul anate (Augmentin) 875-125 MG tablet Take 1 (one) tablet by mouth 2 times daily 10/17/2022 Active aspirin EC (Prashant Aspirin EC Low Dose) 81 MG tablet Take 1 (one) tablet by mouth once daily Active cetirizine (ZyrTEC) 10 MG tablet 10 MG ORALLY DAILY NEEDED FOR ALLERGY SYMPTOMS 12/05/2022 Active fluticasone propionate (Flonase) 50 MCG/ACT nasal spray 2 SPRAY INTRANASALLY DAILY ADMINISTER INTO EACH NOSTRIL 12/05/2022 Active ketorolac (Acular) 0.5 % ophthalmic solution PUT 1 DROP IN LEFT EYE 4 TIMES A DAY Active Mirabegron (MYRBETRIQ PO) Active mometasone (Elocon) 0.1 % cream APPLY TOPICALLY DAILY Active trimethoprim-polym yxin B (Polytrim) 47759-0.1 UNIT/ML-% ophthalmic solution INSTILL 1 DROP IN THE LEFT EYE BY OPHTHALMIC ROUTE 4 TIMES DAILY 08/27/2022 Active prednisoLONE acetate (Pred Forte) 1 % ophthalmic suspension INSTILL 1 DROP LEFT EYE 4 TIMES A DAY Active solifenacin (Vesicare) 10 MG tablet Take 1 (one) tablet by mouth once daily 30 tablet 2 02/06/2023 Active trospium ER 24hr (Sanctura XR) 60 MG capsuleIndications :Mixed incontinence Take 1 (one) capsule by mouth once daily 90 capsule 3 11/29/2023 Active nitrofurantoin monohyd macro crystals (Macrobid) 100 MG capsuleIndications :Urinary Tract Infection Take 1 (one) capsule by mouth 2 times daily with morning and evening meal Reasons: Urinary Tract Infection 14 capsule 02/07/2024 Active estradiol (Vagifem) 10 MCG vaginal tablet Insert 1 (one) tablet into the vagina every Monday & 8 tablet 11 02/12/2024 Active methenamine hippurate (Hiprex) 1 GM tablet Take 1 (one) tablet by mouth 2 times daily 180 tablet 1 03/12/2024 Active estradiol (Estrace) 0.1 MG/GM vaginal creamIndications:R ecurrent Urinary Tract Infection Insert 1 gm, 2 x week. Please send w/ applicator. Reasons: Recurrent Urinary Tract Infection 42 g 4 03/15/2024 Active Active Problems Problem Noted Date Diagnosed Date Hypertension 06/07/2012 IBS (irritable bowel syndrome) 05/22/2012 Hyperlipidemia 05/22/2012 Obesity DM (diabetes mellitus) LOS (obstructive sleep apnea) GERD (gastroesophageal reflux disease) Chronic diarrhea Overview (05/22/2012): and connstipation- having colonoscopy 05/21/2012 Encounters Date Type Department Care Team Description 03/12/2024 Refill [facility] - CUTTING MACHINE TENDER DECORATIVE [address] [place] [address] Jeanie Ziegler MD MEDICATION REFILL 02/12/2024 Orders Only [facility] - CUTTING MACHINE TENDER DECORATIVE [address] [place] [address] Jeanie Ziegler MD from Last 3 Months Family History Medical History Relation Name Comments Diabetes - Type 2 Brother CVA Father CAD (Coronary Artery Disease) Maternal Grandfather Diabetes - Type 2 Mother Diabetes - Type 2 Sister Relation Name Status Comments Brother Father Maternal Grandfather Mother Sister Social History Tobacco Use Types Packs/Day Years Used Date Smoking Tobacco: Former Cigarettes Smokeless Tobacco: Never Tobacco Cessation:Counseling Given: Not Answered Comments:quit 38 years ago Alcohol Use Standard Drinks/Week Comments Yes 0 (1 standard drink = 0.6 oz pur e alcohol) Occassionally PHQ-2 Answer Date Recorded Patient Health Questionnaire-2 Score 0 04/13/2023 Sex and Gender Information Value Date Recorded Sex Assigned at Not on file Gender Identity Not on file Sexual Orientation Not on file Last Filed Vital Signs Vital Sign Reading Time Taken Comments Blood Pressure 155/72 12/28/2022 11:17 AM CDT Pulse 80 12/28/2022 11:17 AM CDT Temperature 36.5 C (97.7 F) 12/28/2022 11:17 AM CDT Respiratory Rate 18 05/17/2012 7:30 AM PRESCRIPTION CLERK LENSES Oxygen Saturation - - Inhaled Oxygen Concentration - - Weight 66.7 kg (147 lb) 12/28/2022 11:17 AM CDT Height 160 cm (5' 3 ) 12/28/2022 11:17 AM CDT Body Mass Index 26.04 12/28/2022 11:17 AM CDT Plan of Treatment Upcoming Encounters Date Type Department Care Team (Late st Contact Info) Description 08/14/2024 11:00 AM CDT 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 [facility] - CUTTING MACHINE TENDER DECORATIVE [address] [place] [address] Jeanie Ziegler MD [address] [place] [address] Health Maintenance Due Date Last Done Comments BONE DENSITY TESTING 1945 MEDICARE AWV 12 MONTHS 1945 HEPATITIS C SCREENING 01/15/1964 DTAP/TDAP/TD VACCINES (1 - Tdap) 1965 PNEUMOCOCCAL VACCINE 50+ (1 of 2 - PCV) 1965 ZOSTER VACCINE (1 of 2) 01/20/1996 DIABETES-SERUM CREATININE 06/07/2013 06/07/2012, 01/2009 DIABETES RETINOPATHY SCREENING 05/21/2020 DIABETES-FOOT EXAM WITH MONOFILAMENT 05/21/2020 DIABETES-HGB A1C 05/21/2020 Respiratory Syncytial Virus (RSV) Vaccine Pt: or over 60 yrs (1 - 1-dose 75+ series) 2021 COVID-19 VACCINE ( season) 2023 11/21/2020, 05/22/2020, 04/28/2020 INFLUENZA VACCINE (#1) 2023 2, 12/19/2020, 12/28/2019, Additional history exists DEPRESSION SCREENING 03/20/2024 02/07/2024 DIABETES - URINE PROTEIN SCREENING 03/20/2024 HEPATITIS B VACCINE Aged Out No longe r eligible based on patient's age to complete this topic HIB VACCINE Aged Out No longer eligi ble based on patient's age to complete this topic HPV VACCINE Aged Out No longer eligi ble based on patient's age to complete this topic MENINGOCOCCAL (Group B) VACCINE Aged Out No longer eligible based on patient's age to complete this topic MENINGOCOCCAL VACCINE Aged Out No toi neil eligible based on patient's age to complete this topic Procedures Procedure Name Priority Date/Time Associated Diagnosis Comments CULTURE URINE Routine 02/08/2024 OAB (overactive bladder) Acute cystitis without hematuria COMPREHENSIVE METABOLIC PANEL Routine 06/07/2012 4:35 PM CDT Obesity, unspecified [ICD-9-CM] from Last 3 Months or Most Recently Relevant to Health Maintenance Results * (ABNORMAL) CULTURE URINE (02/08/2024) Culture (A) [facility] Comment: CULTURE, URINE, ROUTINE Micro Number: [id number] Test Status: Final Specimen Source: Urine, clean catch Specimen Quality: Adequate Result: Greater than 100,000 CFU/mL of Escherichia coli E.coli INT CHICHI AMOX/CLAVULANATE S 8 AMP/SULBACTAM I 16 CEFAZOLIN NR <=4 2 CEFEPIME S <=0.12 CEFTAZIDIME S <=1 CEFTRIAXONE S <=0.25 CIPROFLOXACIN S <=0.06 GENTAMICIN S <=1 IMIPENEM S <=0.25 LEVOFLOXACIN S <=0.12 MEROPENEM S <=0.25 NITROFURANTOIN S <=16 PIP/TAZOBACTAM S <=4 TRIMETHOPRIM/SULFA S <=20 S = Susceptible I = Intermediate R = Resistant NS = Not susceptible SDD = Susceptible Dose Dependent * = Not Tested NR = Not Reported NN = See Therapy Comments THERAPY COMMENTS Note 1: For infections other than uncomplicated UTI caused by E. coli, K. pneumoniae or P. mirabilis: Cefazolin is resistant if CHICHI > or = 8 mcg/mL. (Distinguishing susceptible versus intermediate for isolates with CHICHI < or = 4 mcg/mL requires additional testing.) Note 2: For uncomplicated UTI caused by E. coli, K. pneumoniae or P. mirabilis: Cefazolin is susceptible if CHICHI <32 mcg/mL and predicts susceptible to the oral agents cefaclor, cefdinir, cefpodoxime, cefprozil, cefuroxime, cephalexin and loracarbef. Test Performed at: [facility] [id number] NITESH AZUL MD Urine URINE SPECIMEN OBTAINED BY CLEAN CATCH PROCEDURE / Unknown 02/08/2024 02/09/2024 3:53 AM PRESCRIPTION CLERK LENSES Jeanie Ziegler MD LAB - MICROBIOLOGY O RDERABLES [facility] [address] [place] [address] * COMPREHENSIVE METABOLIC PANEL (06/07/2012 4:35 PM CDT) Glucose 100 74 - 106 mg/dL 06/07/2012 7:22 PM CDT [facility] Sodium 140 136 - 145 mmol/L 06/07/2012 7:22 PM CDT [facility] Potassium 4.1 3.5 - 5.1 mmol/L 06/07/2012 7:22 PM CDT [facility] Chloride 104 98 - 107 mmol/L 06/07/2012 7:22 PM CDT [facility] CO2 27 22 - 31 mmol/L 06/07/2012 7:22 PM CDT [facility] Calcium 8.9 8.5 - 10.1 mg/dL 06/07/2012 7:22 PM CDT [facility] Anion Gap 9 5 - 15 mmol/L 06/07/2012 7:22 PM CDT [facility] BUN 16 7 - 21 mg/dL 06/07/2012 7:22 PM CDT [facility] Creatinine 0.77 0.50 - 1.30 mg/dL 06/07/2012 7:22 PM CDT [facility] eGFR by MDRD >60 >60 ml/min/1.7 3m2 06/07/2012 7:22 PM CDT [facility] eGFR by MDRD >60 >60 ml/min/1.7 3m2 06/07/2012 7:22 PM CDT [facility] Alkaline Phosphatase 108 38 - 126 U/L 06/07/2012 7:22 PM CDT [facility] ALT 33 12 - 78 U/L 06/07/2012 7:22 PM CDT [facility] AST 20 5 - 40 U/L 06/07/2012 7:22 PM CDT [facility] Protein Total 7.1 6.4 - 8.2 gm/dL 06/07/2012 7:22 PM CDT [facility] Albumin 4.0 3.4 - 5.0 gm/dL 06/07/2012 7:22 PM CDT [facility] Bilirubin Total 0.3 0.2 - 1.0 mg/dL 06/07/2012 7:22 PM CDT [facility] Blood specimen (specimen) BLOOD SPECIMEN / Unknown 06/07/2012 4:35 PM CDT 06/07/2012 6:45 PM CDT Laya Rios MD LAB - CHEMISTRY O RDERABLES [facility] [address] [place] [address] from Last 3 Months or Most Recently Relevant to Health Maintenance Care Teams Skin Diving Teacher Relationship Specialty Start Date End Date Tino Shabazz DO [address] [place], [place] [id number] PCP - General 05/21/20 Zachary Brunson MD [address] [place] [address] Consulting Physician Gastroenterology 05/28/12
--- OUTSIDE RECORDS SUMMARY | 2024-05-10 13:50 | XMS_ITS | Patient Health Summary ---
Author Organization [facility] Address [address] [place] [address] Care Team Providers Care Custom Applicator Name Role Phone Zachary Brunson MD Unavailable [phone] Tino Shabazz DO Primary Care Provider [phone] Note from [facility],non-owned Affiliates and Associated Physician Practices is amultiple site organization consisting of ambulatory clinics and hospital sitesin [place], [place], [place] and [place]. This disclosure is being madepursuant to the Care Everywhere program and may not contain all information available regarding this patient. Last updated 17.[facility] Allergies No known active allergies Medications * Be aware that medications may not be up to date on this document. Alwaysverify current medications with the patient. * atorvastatin (Lipitor) 40 MG tablet Take 1 Half Tablet by mouth once daily * metFORMIN (GLUCOPHAGE) 500 MG tablet Take 1 (one) tablet by mouth once daily * Loperamide (Imodium) 2 MG tablet Take 1 Half Tablet by mouth as needed * semaglutide (OZEMPIC, 0.25 OR 0.5 MG/DOSE,) 2 MG/1.5ML pen Inject 0.5 (one-half) mg subcutaneously every 7 days * Calcium Carb-Cholecalciferol (CALCIUM 1000 + D PO) Take 1 tablet by mouth once daily 600+D3 * vitamin D3-cholecalciferol (CHOLECALCIFEROL) 25 MCG (1000 UNITS) tablet Take 1 (one) tablet by mouth once daily * losartan-hydroCHLOROthiazide (Hyzaar) 100-12.5 MG tablet losartan 100 mg-hydrochlorothiazide 12.5 mg tablet * omeprazole (PriLOSEC) 40 MG capsule omeprazole 40 mg capsule,delayed release * Multiple Vitamins-Minerals (ICAPS AREDS 2 PO) Take 1 tablet by mouth once daily * amoxicillin-clavulanate (Augmentin) 875-125 MG tablet(Started 10/17/2022) Take 1 (one) tablet by mouth 2 times daily * aspirin EC (Prashant Aspirin EC Low Dose) 81 MG tablet Take 1 (one) tablet by mouth once daily * cetirizine (ZyrTEC) 10 MG tablet(Started 12/05/2022) 10 MG ORALLY DAILY NEEDED FOR ALLERGY SYMPTOMS * fluticasone propionate (Flonase) 50 MCG/ACT nasal spray(Started 12/05/2022) 2 SPRAY INTRANASALLY DAILY ADMINISTER INTO EACH NOSTRIL * ketorolac (Acular) 0.5 % ophthalmic solution PUT 1 DROP IN LEFT EYE 4 TIMES A DAY * Mirabegron (MYRBETRIQ PO) * mometasone (Elocon) 0.1 % cream APPLY TOPICALLY DAILY * trimethoprim-polymyxin B (Polytrim) 87790-2.1 UNIT/ML-% ophthalmic solution (Started 08/27/2022) INSTILL 1 DROP IN THE LEFT EYE BY OPHTHALMIC ROUTE 4 TIMES DAILY * prednisoLONE acetate (Pred Forte) 1 % ophthalmic suspension INSTILL 1 DROP LEFT EYE 4 TIMES A DAY * solifenacin (Vesicare) 10 MG tablet(Started 02/06/2023) Take 1 (one) tablet by mouth once daily 2 refills by 02/06/2024 * trospium ER 24hr (Sanctura XR) 60 MG capsule(Started 11/29/2023) Take 1 (one) capsule by mouth once daily 3 refills by 11/28/2024 * nitrofurantoin monohyd macro crystals (Macrobid) 100 MG capsule(Started 02/07/2024) Take 1 (one) capsule by mouth 2 times daily with morning and evening meal Reasons: Urinary Tract Infection * estradiol (Vagifem) 10 MCG vaginal tablet(Started 02/12/2024) Insert 1 (one) tablet into the vagina every Monday & 11 refills by 02/11/2025 * methenamine hippurate (Hiprex) 1 GM tablet(Started 03/12/2024) Take 1 (one) tablet by mouth 2 times daily 1 refill by 03/12/2025 * estradiol (Estrace) 0.1 MG/GM vaginal cream(Started 03/15/2024) Insert 1 gm, 2 x week. Please send w/ applicator. Reasons: Recurrent Urinary Tract Infection 4 refills by 03/15/2025 Active Problems Problem Noted Date Diagnosed Date Hypertension 06/07/2012 IBS (irritable bowel syndrome) 05/22/2012 Hyperlipidemia 05/22/2012 Obesity DM (diabetes mellitus) LOS (obstructive sleep apnea) GERD (gastroesophageal reflux disease) Chronic diarrhea Social History Tobacco Use Types Packs/Day Years [...] CDT Respiratory Rate 18 05/17/2012 7:30 AM HYDRAULIC BARKER OPERATOR Oxygen Saturation - - Inhaled Oxygen Concentration - - Weight 66.7 kg (147 lb) 12/28/2022 11:17 AM CDT Height 160 cm (5' 3 ) 12/28/2022 11:17 AM CDT Body Mass Index 26.04 12/28/2022 11:17 AM CDT Procedures * CULTURE URINE(Performed 02/08/2024) Performed for OAB (overactive bladder), Acute cystitis without hematuria * URINALYSIS AUTO - POINT OF CARE (AMB) [facility](Performed 02/07/2024) Performed for OAB (overactive bladder), Acute cystitis without hematuria * NH CYSTOSCOPY CHEMODENERVATION(Performed 02/07/2024) Performed for OAB (overactive bladder) * CULTURE URINE(Performed 10/28/2023) Performed for Acute cystitis without hematuria * CULTURE URINE(Performed 03/28/2023) Performed for Acute cystitis without hematuria * NH CYSTOSCOPY CHEMODENERVATION(Performed 12/28/2022) Performed for OAB (overactive bladder) * URINALYSIS AUTO - POINT OF CARE (AMB) [facility](Performed 12/28/2022) Performed for Mixed incontinence, OAB (overactive bladder) * CULTURE URINE(Performed 11/12/2022) Performed for Acute cystitis without hematuria * URINALYSIS AUTO - POINT OF CARE (AMB) [facility](Performed 04/20/2022) Performed for Mixed incontinence * NH INSERT NON-INDWELLING BLADDER(Performed 05/21/2020) Performed for Mixed incontinence, Recurrent UTI * URINALYSIS - POINT OF CARE(Performed 05/21/2020) Performed for Mixed incontinence, Recurrent UTI * URIC ACID BLOOD(Performed 06/07/2012) Performed for Obesity, unspecified [ICD-9-CM] * COMPREHENSIVE METABOLIC PANEL(Performed 06/07/2012) Performed for Obesity, unspecified [ICD-9-CM] * CBC W/O DIFFERENTIAL(Performed 05/22/2012) Performed for Obesity * CARDIAC EKG ORDER(Performed 05/22/2012) * LAB RESULTS ORDER(Performed 05/17/2012) * PATHOLOGY/GENETICS HISTORICAL-ONBASE(Performed 06/15/2009) * CULTURE URINE(Performed 01/08/2009) * BASIC METABOLIC PANEL (CALCIUM TOTAL)(Performed 10/28/2008) Performed for Unspecified Pre-Operative Examination Results * (ABNORMAL) CULTURE URINE (02/08/2024) Only the most recent of5 resultswithin the time period is included. Culture (A) [facility] Comment: CULTURE, URINE, ROUTINE Micro Number: [id number] Test Status: Final Specimen Source: Urine, clean [...] cefuroxime, cephalexin and loracarbef. Test Performed at: [facility] [address] NITESH AZUL MD Urine URINE SPECIMEN OBTAINED BY CLEAN CATCH PROCEDURE / Unknown 02/08/2024 02/09/2024 3:53 AM HYDRAULIC BARKER OPERATOR Jeanie Ziegler MD LAB - MICROBIOLOGY O RDERABLES [address] [address] * URINALYSIS AUTO - POINT OF CARE (AMB) [facility] (02/07/2024 4:03 PM HYDRAULIC BARKER OPERATOR) Only the most recent of3 resultswithin the time period is included. Glucose UA neg [facility] [address] Bilirubin UA POCT neg [facility] [address] Ketones UA POCT neg [facility] [address] Specific [place] UA 1.[address] [facility] [address] Blood Urine POCT neg [facility] [address] pH UA 6.0 [facility] [address] Protein UA neg [facility] [address] Urobilinogen UA 0.2 [facility] [address] Nitrite UA pos [facility] [address] WBC UA neg [facility] [address] Urine URINE / Unknown 02/07/2024 4 :03 PM HYDRAULIC BARKER OPERATOR Jeanie Ziegler MD LAB - POINT OF CARE ORDERABLES [facility] [address] [place] [address], [facility] [phone] * NH CYSTOSCOPY CHEMODENERVATION (02/07/2024 12:27 PM HYDRAULIC BARKER OPERATOR) Narrative Jeanie Ziegler MD - 02/07/2024 12:27 PM HYDRAULIC BARKER OPERATOR Jeanie Ziegler MD 02/07/2024 12:31 PM PROCEDURE NOTE Surgeon: Dr. Hollingsworth Preoperative diagnosis: OAB (N32.81) , urgency incontinence (N39.41) , refractory to 1st and 2nd line therapy. Significantly effects patients daily life by frrquency and up 3 x night. Also unpredictable leakage daily. Postoperative diagnosis: same Procedures performed: Intradetrusor injection of Botox into bladder - 100 units not more frequently than every 3 months Prior Procedure: Date Number 5. She noted that she was much less frequency and leakage. Anesthesia: 1% LIDOCAINE with bicarb Procedure Note: Screened with negative dip test. 50cc of 1% Lidocaine and 50 cc Na Bicarb were instilled into the bladder via a catheter. It was allow to sit there for 30 min. I now proceeded with cystoscopy. I used a 12 degree rigid cystoscopy. 5 units of Botox was injected into 20 sites across the base of the bladder for a total of 100 units. One of the injections was in the middle just above the trigone. None wasted. She tolerated the procedure without issue and was discharged to home. She was given 7 days of antibiotics. Plan: She will followup in 2 weeks via phone/mychart or sooner if any voiding issues or thinks she is worse which may indicate retention. Repeat 100 units every 3 - 12 months depending on how long it works for her. Jeanie Ziegler MD PROCEDURE/MINOR SURG ICAL ORDERABLES * NH CYSTOSCOPY CHEMODENERVATION (12/28/2022 12:40 PM CDT) Jeanie Mcdonnell MD - 12/28/2022 12:40 PM CDT Jeanie Ziegler MD 12/28/2022 12:41 PM PROCEDURE NOTE Surgeon: Dr. Hollingsworth Preoperative diagnosis: OAB (N32.81) , urgency incontinence (N39.41) , refractory to 1st and 2nd line therapy. Significantly effects patients daily life by being up 2-4 x night and voiding every 2 hours day. Trouble making it to bathroom. Also bladder spasms. Postoperative diagnosis: same Procedures performed: Intradetrusor injection of Botox Prior Procedure: Number 0. Anesthesia: 1% LIDOCAINE Procedure Note: 50cc of 1% Lidocaine and 50 cc Na Bicarb were instilled into the bladder vis a red rubber catheter. It was allow to sit there for 30 min. I now proceeded with cystoscopy. I used a 12 degree rigid cystoscopy. 5 units of Botox was injected into 20 sites across the base of the bladder for a total of 100 units. One of the injections was in the middle of the trigone. She tolerated the procedure without issue and was discharged to the care of her daughter. She was given 7 days of antibiotics. Plan: She will followup in 2 weeks in person or phone/mychart or sooner if any voiding issues or thinks she is worse which may indicate retention. Repeat 100 units every 6 - 12 months depending on how long it lasts for her. Jeanie Ziegler MD PROCEDURE/MINOR SURG ICAL ORDERABLES * NH INSERT NON-INDWELLING BLADDER (05/21/2020 4:03 PM HYDRAULIC BARKER OPERATOR) Narrative Jeanie Ziegler MD - 05/21/2020 4:03 PM HYDRAULIC BARKER OPERATOR Jeanie Ziegler MD 05/21/2020 4:03 PM PVR 140 cc Jeanie Ziegler MD PROCEDURE/MINOR SURG ICAL ORDERABLES * URINALYSIS - POINT OF CARE (05/21/2020) Clarity UA POCT clear Color UA POCT yellow Leukocyte UA 1+ Negative Nitrite UA POCT neg Negative Urobilinogen UA 0.2 0.1 - 1.0 Protein UA POCT neg Negative pH UA 6.0 5.0 - 8.0 pH units Blood UA neg Negative Specific [place] UA POCT 1.025 1.002 - 1.030 Ketone UA neg Negative Bilirubin UA POCT arsenio Negative Glucose UA arsenio Negative Urine URINE / Unknown 05/21/2020 Jeanie Ziegler MD LAB - POINT OF CARE ORDERABLES * URIC ACID BLOOD (06/07/2012 4:35 PM CDT) Uric Acid 5.2 2.5 - 6.2 mg/dL 06/07/2012 7:22 PM CDT [facility] Blood specimen (specimen) BLOOD SPECIMEN / Unknown 06/07/2012 4:35 PM CDT 06/07/2012 6:45 PM CDT Laya Rios MD LAB - CHEMISTRY O RDERABLES [facility] [address] [place] [address] * COMPREHENSIVE METABOLIC PANEL (06/07/2012 4:35 PM CDT) Glucose 100 74 - 106 mg/dL 06/07/2012 7:22 PM CDT [facility] Sodium 140 136 - 145 mmol/L 06/07/2012 7:22 PM CDT [facility] Potassium 4.1 3.5 - 5.1 mmol/L 06/07/2012 7:22 PM CDT [facility] Chloride 104 98 - 107 mmol/L 06/07/2012 7:22 PM CDT [facility] CO2 27 22 - 31 mmol/L 06/07/2012 7:22 PM CDT [facility] Calcium 8.9 8.5 - 10.1 mg/dL 06/07/2012 7:22 PM CDT [facility] Anion Gap 9 5 - 15 mmol/L 06/07/2012 7:22 PM CDT [facility] BUN 16 7 - 21 mg/dL 06/07/2012 7:22 PM CDT [facility] Creatinine 0.77 0.50 - 1.30 mg/dL 06/07/2012 7:22 PM CDT [facility] eGFR by MDRD >60 >60 ml/min/1.7 3m2 06/07/2012 7:22 PM CDT [facility] eGFR by MDRD >60 >60 ml/min/1.7 3m2 06/07/2012 7:22 PM CDT [facility] Alkaline Phosphatase 108 38 - 126 U/L 06/07/2012 7:22 PM CDT [facility] ALT 33 12 - 78 U/L 06/07/2012 7:22 PM CDT [facility] AST 20 5 - 40 U/L 06/07/2012 7:22 PM CDT [facility] Protein Total 7.1 6.4 - 8.2 gm/dL 06/07/2012 7:22 PM CDT [facility] Albumin 4.0 3.4 - 5.0 gm/dL 06/07/2012 7:22 PM CDT [facility] Bilirubin Total 0.3 0.2 - 1.0 mg/dL 06/07/2012 7:22 PM CDT [facility] Blood specimen (specimen) BLOOD SPECIMEN / Unknown 06/07/2012 4:35 PM CDT 06/07/2012 6:45 PM CDT Laya Rois MD LAB - CHEMISTRY O RDERABLES [facility] [address] [place] [address] * CBC W/O DIFFERENTIAL (05/22/2012 4:07 PM HYDRAULIC BARKER OPERATOR) WBC 7.5 4.4 - 10.7 x10^9/L 05/22/2012 5:45 PM HYDRAULIC BARKER OPERATOR [facility] RBC 4.18 3.80 - 5.20 x10^12/L 05/22/2012 5:45 PM HYDRAULIC BARKER OPERATOR [facility] Hemoglobin 12.4 12.0 - 15.6 g/dL 05/22/2012 5:45 PM HYDRAULIC BARKER OPERATOR [facility] Hematocrit 37.2 35.9 - 45.5 % 05/22/2012 5:45 PM HYDRAULIC BARKER OPERATOR [facility] MCV 89.0 80.7 - 98.3 fl 05/22/2012 5:45 PM HYDRAULIC BARKER OPERATOR [facility] MCH 29.7 26.7 - 34.0 pg 05/22/2012 5:45 PM HYDRAULIC BARKER OPERATOR [facility] MCHC 33.3 30.8 - 35.9 gm/dL 05/22/2012 5:45 PM HYDRAULIC BARKER OPERATOR [facility] Platelet Count 213 153 - 416 x10^9/L 05/22/2012 5:45 PM HYDRAULIC BARKER OPERATOR [facility] RDW-CV 13.0 12.1 - 14.9 % 05/22/2012 5:45 PM HYDRAULIC BARKER OPERATOR [facility] MPV 11.9 9.4 - 12.9 fl 05/22/2012 5:45 PM HYDRAULIC BARKER OPERATOR [facility] Blood specimen (specimen) BLOOD SPECIMEN / Unknown 05/22/2012 4:07 PM HYDRAULIC BARKER OPERATOR 05/22/2012 5:22 PM HYDRAULIC BARKER OPERATOR Nereida Blanchard MD LAB - HEMATOLOGY ORD ERABLES [facility] [address] [place] [address] * CARDIAC EKG ORDER (05/22/2012) Nereida Blanchard MD CARDIAC SERVICES ORD ERABLES * LAB RESULTS ORDER (05/17/2012) Laya Rios MD LAB - THERAPEUTIC DRUG MONITORING ORDERABLES * PATHOLOGY/GENETICS HISTORICAL-ONBASE (06/15/2009) 06/15/2009 Jeanie Ziegler MD LAB - CHEMISTRY [facility] * (ABNORMAL) BASIC METABOLIC PANEL (CALCIUM TOTAL) (10/28/2008 10:30 AM CDT) Sodium 142 137 - 145 mmol/L [facility] Potassium 4.7 3.6 - 5.0 mmol/L [facility] Chloride 105 98 - 107 mmol/L [facility] BUN 14 7 - 17 mg/dl [facility] Creatinine 0.85 0.52 - 1.04 mg/dl [facility] Glucose 99 65 - 105 mg/dl [facility] CO2 30 22 - 30 mmol/L [facility] Calcium 10.0 8.4 - 10.2 mg/dl [facility] eGFR by MDRD 68(L) 88 - 128 mL/min/1.7 3m2 [facility] Comment eGFR [facility] Comment: The eGFR does not apply to patients who are younger than 18 or older than 70. BLOOD SPECIMEN / Unknown 10/28/2008 10:30 AM CDT Jeanie Ziegler MD LAB - CHEMISTRY [facility] Organization Address City/State/ZIP Co de Phone Number [facility] [address] [place] [address] Care Teams Custom Applicator Relationship Specialty Start Date End Date Tino Shabazz DO [address] [place] [address] PCP - General 05/21/20 Zachary Brunson MD [address] [place] [address] Consulting Physician Gastroenterology 05/28/12
--- OUTSIDE RECORDS SUMMARY | 2024-05-10 13:50 | XMS_ITS | Clinical Summary ---
Author Organization [facility] Address [address] [address] Phone Care Team Providers Care Shotweld Operator Name Role Phone Denny Georges MD Primary Care Provider Allergies No known active allergies Medications atorvastatin (LIPITOR) 40 MG Tablet Take 40 mg by mouth daily. Active losartan potassium-hydro chlorothiazide (HYZAAR) 100-25 MG Tablet Take 1 Tab by mouth daily. Active metFORMIN (GLUCOPHAGE) 500 MG Tablet Take 500 mg by mouth 2 times daily (with meals). Active Liraglutide (VICTOZA SC) 1.2 mg by Subcutaneous route. Active Aspirin 81 MG Tablet Take 81 mg by mouth daily. Active Calcium Carb-Cholecalci ferol (CALCIUM 600 + D PO) Take by mouth. Act migue CRANBERRY PO Take by mouth. Ac tive FIBER PO Take by mouth. Activ e [place]-3 Fatty Acids (FISH OIL PO) Take by mouth. Activ e Dietary Management Product (TOZAL PO) Take by mouth. Activ e traZODone (DESYREL) 50 MG Tablet Take 50 mg by mouth nightly. Active Loperamide HCl (IMODIUM A-D PO) Take by mouth. Activ e omeprazole (PRILOSEC) 40 MG CAPSULE DELAYED RELEASE TAKE 1 CAPSULE BY MOUTH DAILY 90 Cap 3 8 Active Immunizations Immunization Administration Dates Next Due Hepatitis A And Hepatitis B Vaccine 11/14/2017 Influenza Vaccine,unspecifie d Formulation 01/08/2014,12/28/2011 Influenza, high-dose, trivalent, PF 12/20,01/04/2017,12/24/2015,2014 Pneumococcal Vaccine - 13 Valent 01/08/2015 Pneumococcal Vaccine Adult - 23 Valent 01/17/2018 Family History Medical History Relation Name Comments Colon Cancer Brother 1 Diabetes Brother 2 Diabetes Father Heart Disease Father Alzheimer's Disease Mother Diabetes Mother Stroke Mother Diabetes Sister Relation Name Status Comments Brother 1 Brother 2 Father Mother Sister Social History Tobacco Use Types Packs/Day Years Used Date Smoking Tobacco: Former Cigarettes Q uit: 12/08/1974 Comments:quit 40 years ago. Social smoker 1 pack per week Alcohol Use Standard Drinks/Week Comments No 0 (1 standard drink = 0.6 oz pur e alcohol) Comments No Sex and Gender Information Value Date Recorded Sex Assigned at Not on file Legal Sex Female 8:59 PM CDT Gender Identity Not on file Sexual Orientation Not on file Last Filed Vital Signs Vital Sign Reading Time Taken Comments Blood Pressure 130/80 05/11/2017 12:50 PM ELECTRON GUN INSPECTOR Pulse 68 05/11/2017 12:50 PM ELECTRON GUN INSPECTOR Temperature 36.5 C (97.7 F) 12/08/2016 12:54 PM CDT Respiratory Rate - - Oxygen Saturation 98% 05/11/2017 12:50 PM ELECTRON GUN INSPECTOR Inhaled Oxygen Concentration - - Weight 96.4 kg (212 lb 9.6 oz) 05/11/2017 12:50 PM ELECTRON GUN INSPECTOR Height 160 cm (5' 3 ) 05/11/2017 12:50 PM ELECTRON GUN INSPECTOR Body Mass Index 37.66 05/11/2017 12:50 PM ELECTRON GUN INSPECTOR Plan of Treatment Health Maintenance Due Date Last Done Comments DEXA Bone Density 1945 TdaP Immunization 1945 Zoster Immunization (1 of 2) 01/20/1996 Hepatitis B Immunization (2 of 3 - Hep B Twinrix 3-dose series) 12/12/2017 11/14/2017 Respiratory Syncytial Virus (RSV) Immunization (Adult) (1 - 1-dose 75+ series) 2021 Influenza Immunization (#1) 11/19/202312/20, 01/04/2017, 12/24/2015, Additional history exists SARS-COV-2 Immunization ( season) 2023 11/21/2020, 05/22/2020, 04/28/2020 Colonoscopy High Risk Discontinued 05/21/2012, 008 Colonoscopy Discontinued 05/21/2012, 05/28/2007 Colorectal Cancer Screening Discontinued Pneumococcal Immunization (50+ years) Completed 01/17/2018, 01/08/2015 Pneumococcal Immunization Combined Discontinued 01/17/2018, 01/08/2015 Cologuard Discontinued Immunochemical Fecal Occult Blood Discontinued Meningococcal Immunization (ACWY) Aged Out No longer eligible based on patient's age to complete this topic Rotavirus Immunization Aged Out No lo nger eligible based on patient's age to complete this topic Procedures Procedure Name Priority Date/Time Associated Diagnosis Comments COLONOSCOPY Routine 05/21/2012 from Last 3 Months or Most Recently Relevant to Health Maintenance Results * COLONOSCOPY (05/21/2012) us Not On File Provider PROCEDURE/MINOR SURGICAL OR DERABLES Final Result from Last 3 Months or Most Recently Relevant to Health Maintenance Insurance MEDICARE C [employer] Care Teams Shotweld Operator Relationship Specialty Start Date End Date Denny Georges MD [address] [place] [address] PCP - General Internal Medicine 12/08/16
--- OUTSIDE RECORDS SUMMARY | 2024-05-10 13:50 | XMS_ITS | Referral Summary ---
Author Organization [facility] Address [address] [place] [address] Care Team Providers Care Supervisor Carding Name Role Phone Zachary Brunson MD Unavailable [phone] Tino Shabazz DO Primary Care Provider [phone] Source Comments [facility],non-owned Affiliates and Associated Physician Practices is amultiple site organization consisting of ambulatory clinics and hospital sitesin [place], [place] and [place]. This disclosure is being madepursuant to the Care Everywhere program and may not contain all information available regarding this patient. Last updated 17.[facility] Encounters Date Type Department Care Team Description 03/12/2024 Refill [facility] - BAIT DIGGER [address] [place] [address] Jeanie Ziegler MD MEDICATION REFILL 02/12/2024 Orders Only [facility] - BAIT DIGGER [address] [place] [address] Jeanie Ziegler MD from Last 3 Months Allergies No known active allergies Medications * [...] TOPICALLY DAILY Active trimethoprim-polym yxin B (Polytrim) 80040-7.1 UNIT/ML-% ophthalmic solution INSTILL 1 DROP IN [...] Overview (05/22/2012): and connstipation- having colonoscopy 05/21/2012 Social History Tobacco Use Types Packs/Day Years [...] CDT Respiratory Rate 18 05/17/2012 7:30 AM NEPHROLOGY NURSE Oxygen Saturation - - Inhaled Oxygen Concentration - - Weight 66.7 kg (147 lb) 12/28/2022 11:17 AM CDT Height 160 cm (5' 3 ) 12/28/2022 11:17 AM CDT Body Mass Index 26.04 12/28/2022 11:17 AM CDT Plan of Treatment Upcoming Encounters Date Type Department Care Team (Late st Contact Info) Description 08/14/2024 11:00 AM CDT 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 [facility] - BAIT DIGGER [address] [place] [address] Jeanie Ziegler MD [address] [place] [address] Procedures Procedure Name Priority Date/Time Associated Diagnosis Comments CULTURE URINE Routine 02/08/2024 OAB (overactive bladder) Acute cystitis without hematuria COMPREHENSIVE METABOLIC PANEL Routine 06/07/2012 4:35 PM CDT Obesity, unspecified [ICD-9-CM] from Last 3 Months or Most Recently Relevant to Health Maintenance Results * (ABNORMAL) CULTURE URINE (02/08/2024) Culture (A) [facility] Comment: CULTURE, URINE, ROUTINE Micro Number: [id number] Test Status: Final Specimen Source: Urine, clean [...] cefuroxime, cephalexin and loracarbef. Test Performed at: [email or web address] [id number] NITESH AZUL MD Urine URINE SPECIMEN OBTAINED BY CLEAN CATCH PROCEDURE / Unknown 02/08/2024 02/09/2024 3:53 AM NEPHROLOGY NURSE Jeanie Ziegler MD LAB - MICROBIOLOGY O RDERABLES [address] [address] * COMPREHENSIVE METABOLIC PANEL (06/07/2012 4:35 PM CDT) Glucose 100 74 - 106 mg/dL 06/07/2012 7:22 PM CDT [facility] Sodium 140 136 - 145 mmol/L 06/07/2012 7:22 PM CDT [facility] Potassium 4.1 3.5 - 5.1 mmol/L 06/07/2012 7:22 PM CDT [facility] Chloride 104 98 - 107 mmol/L 06/07/2012 7:22 PM CDT [facility] CO2 27 22 - 31 mmol/L 06/07/2012 7:22 PM CDT [facility] Calcium 8.9 8.5 - 10.1 mg/dL 06/07/2012 7:22 PM CDT [facility] Anion Gap 9 5 - 15 mmol/L 06/07/2012 7:22 PM CDT [facility] BUN 16 7 - 21 mg/dL 06/07/2012 7:22 PM CDT [facility] Creatinine 0.77 0.50 - 1.30 mg/dL 06/07/2012 7:22 PM CDT [facility] eGFR by MDRD >60 >60 ml/min/1.7 3m2 06/07/2012 7:22 PM CDT [facility] eGFR by MDRD >60 >60 ml/min/1.7 [...] Rios MD LAB - CHEMISTRY O RDERABLES Performing Organization Address City/State/[facility] Co de Phone Number [facility] [address] [place] [address] from Last 3 Months or Most Recently Relevant to Health Maintenance Care Teams Supervisor Carding Relationship Specialty Start Date End Date Tino Shabazz DO [address] [place] [address] PCP - General 05/21/20 Zachary Brunson MD [address] [place] [address] Consulting Physician Gastroenterology 05/28/12
--- OUTSIDE RECORDS SUMMARY | 2024-05-10 13:50 | XMS_ITS | Encounter Summary ---
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 [address] [place] [address] Jeanie Ziegler MD [address] [place] [address] MEDICATION REFILL Social History Tobacco Use Types Packs/Day Years Used Date Smoking Tobacco: Former Cigarettes Smokeless Tobacco: Never Comments:quit 38 years ago Alcohol Use Standard Drinks/Week Comments Yes 0 (1 standard drink = 0.6 oz pur e alcohol) Occassionally PHQ-2 Answer Date Recorded Patient Health Questionnaire-2 Score 0 04/13/2023 Sex and Gender Information Value Date Recorded Sex Assigned at Not on file Gender Identity Not on file Sexual Orientation Not on file documented as of this encounter Miscellaneous Notes * Telephone Encounter - Karen Hale - 09/05/2023 2:54 PM CDT Refill Request: Medication Approved Obdulia Villasenor FENG: 12/28/2022 NOV due: non scheduled NOV scheduled: 02/22/2024 LRF: 02/28/2023 Qty Disp: 90 capsules # of refills: 2 Allergies: No Known Allergies Pended Medication Order: Requested Prescriptions Pending Prescriptions Disp Refills trospium ER 24hr (Sanctura XR) 60 MG capsule 90 capsule 3 Sig: Take 1 (one) capsule by mouth once daily documented in this encounter Plan of Treatment Upcoming Encounters Date Type Department Care Team (Late st Contact Info) Description 08/14/2024 11:00 AM CDT 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 [facility] - 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
== END 2024-05-10 13:43 | disposition home or self-care (01) ==
PROVIDERS: PCP Nurse Practitioner; Visit Provider Nurse Practitioner
DX: J02.9 Acute pharyngitis, unspecified (principal)
CPT/HCPCS: 87070

== ENCOUNTER 2025-03-12 09:32 | Outpatient (CLI) | payer MEDICARE, SELFPAY ==
--- NOTE | ~2025-03-12 | MM_ITS ---
EXAMINATION: MM screening chely BI w tess HISTORY: Screening. Bilateral reduction mammoplasty in the remote past. TECHNIQUE: Craniocaudal and mediolateral oblique 3-D tomosynthesis images were obtained and synthetic 2-D images were generated. CAD analysis was submitted and interpreted. COMPARISON: 2023, 2022, and 2021 BREAST PARENCHYMAL COMPOSITION: Dense: The breasts are heterogeneously dense, which may obscure small masses. FINDINGS: There are dense masslike areas with peripheral distortion which are likely secondary to the previous surgery. The appearance is unchanged. No suspicious masses are seen. There are large coarse calcifications, most of which are present show peripheral, eggshell type calcifications There are no suspicious calcifications. Postop changes are seen. No unexplained architectural distortion is seen. There are no skin or nipple abnormalities identified. There is no adenopathy seen on the images submitted. IMPRESSION: No mammographic evidence to suggest malignancy is seen. The patient may return to screening mammography as per ACR guidelines. BI-RADS 2 - Benign. Reviewed, dictated and finalized at location A. DEPOSIT ATTENDANT
== END 2025-03-12 09:33 | disposition home or self-care (01) ==
PROVIDERS: PCP Nurse Practitioner; Visit Provider Internal Medicine
DX: Z12.31 Encounter for screening mammogram for malignant neoplasm of breast (principal)
CPT/HCPCS: 77063; 77067